=== PATIENT | male | born 1955 | race African-American/Black ===

== ENCOUNTER 2018-09-14 17:03 | Emergency (ER) | payer SELFPAY ==
--- NOTE | 2018-09-14 18:51 | RAD REPORT ---
EXAM DESCRIPTION: CT - Head Brain Wo Cont - 09/14/2018 6:39 pm CLINICAL HISTORY: Headache COMPARISON: None. TECHNIQUE: Computed axial tomography of the head was obtained. IV contrast was not requested. All CT scans are performed using dose optimization technique as appropriate and may include automated exposure control or mA/KV adjustment according to patient size. FINDINGS: An intracranial bleed is not seen . The ventricles are normal in caliber. No extra-axial fluid collection is noted. Fluid within the sinuses/ mastoids is not seen. IMPRESSION: No acute intracranial abnormality is seen. If patient's symptoms persist MRI of the bra in would be recommended.
[2018-09-14 19:09] LABS: Absolute Lymphocytes (CBC) 1.9 K/uL (0.7-4.9); Absolute Monocytes 0.5 K/uL (0.1-1.3); Absolute Neutrophil 4.3 K/uL (1.8-8.0); Eosinophils % 2.6 % (0-4.4); Hematocrit 38.2 % (39.6-49.0); MPV 9.7 fL (7.6-11.3); Monocytes % 6.7 % (3.3-12.3); RBC Red Blood Cell Count 5.33 M/uL (4.33-5.43)
[2018-09-14] MEDS ORDERED: METOCLOPRAMIDE 10 MG/2mL INJ ONE (19:21)
[2018-09-14] MEDS ORDERED: NA CHLORIDE 0.9% 250 ML ONE (19:22)
[2018-09-14] MEDS ORDERED: DIPHENHYDRAMINE 50 MG/ML VIAL ONE (19:22)
[2018-09-14 19:23] LABS: Bilirubin Total 0.6 mg/dL (0.2-1.0); Potassium 4.1 mmol/L (3.5-5.1); Protein, Total 7.4 g/dL (6.4-8.2)
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
== END 2018-09-14 20:17 | disposition home or self-care (01) ==
LOC: ER 17:03
DX: R51 Headache (principal); Z88.6 Allergy status to analgesic agent
CPT/HCPCS: 36415; 70450; 80053; 85025; 96365; 96375; 99284; J2765

== ENCOUNTER 2020-04-29 17:38 | Emergency (ER) | payer SELFPAY ==
[2020-04-29 19:48] LABS: Absolute Lymphocytes (CBC) 2.3 K/uL (0.7-4.9); Basophils % 0.8 % (0-1.3); Hematocrit 35.1 % (39.6-49.0); Lymphocytes % 30.6 % (15.3-44.8); MPV 9.7 fL (7.6-11.3); RBC Red Blood Cell Count 4.84 M/uL (4.33-5.43)
--- NOTE | 2020-04-29 19:51 | RAD REPORT ---
EXAM DESCRIPTION: CT - Head Brain Wo Cont - 04/29/2020 7:31 pm CLINICAL HISTORY: AMS Headache, drowsiness COMPARISON: Head Brain Wo Cont dated 09/14/2018 TECHNIQUE: All CT scans are performed using dose optimization technique as appropriate and may inclu de automated exposure control or mA/KV adjustment according to patient size. FINDINGS: No intracranial hemorrhage, hydrocephalus or extra-axial fluid collection.No areas of brai n edema or evidence of midline shift. The paranasal sinuses and mastoids are clear. The calvarium is intact. IMPRESSION: No acute intracranial abnormality.
--- NOTE | 2020-04-29 19:52 | RAD REPORT ---
EXAM DESCRIPTION: RAD - Chest Pa And Lat (2 Views) - 04/29/2020 7:39 pm CLINICAL HISTORY: AMS Chest pain. COMPARISON: No comparisons FINDINGS: The lungs are clear. The heart is normal in size. No displaced fractures. IMPRESSION: No acute or concerning finding suspected.
[2020-04-29 20:14] LABS: Bilirubin Direct 0.2 mg/dL (0-0.2); Potassium 3.8 mmol/L (3.5-5.1); Protein, Total 7.3 g/dL (6.4-8.2)
[2020-04-29] MEDS ORDERED: NA CHLORIDE 0.9% 1,000 ML ONE (21:03)
[2020-04-29 21:18] LABS: Urine Blood NEGATIVE (NEG); Urine Glucose NEGATIVE (NEG); Urine Protein NEGATIVE (NEG); Urine Specific Gravity >1.030 (1.005-1.030); Urine pH 5.5 (5.0-7.0)
[2020-04-29 21:23] LABS: Urine Bacteria <20 /HPF (NONE SEEN); Urine Culture Reflex Order NOT NEEDED; Urine Mucus 3+ /HPF (NONE SEEN); Urine RBC <5 /HPF (NONE SEEN)
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
[2020-04-29 21:36] LABS: Barbiturates NEGATIVE (NEGATIVE); Benzodiazepines NEGATIVE (NEGATIVE); Cocaine POSITIVE (NEGATIVE); METHAMPHETAM NEGATIVE (NEGATIVE); Methadone NEGATIVE (NEGATIVE); Opiates NEGATIVE (NEGATIVE); Phencyclidine NEGATIVE (NEGATIVE); THC Cannibis NEGATIVE (NEGATIVE)
[2020-04-30 05:36] VITALS: TEMP 97.9; O2SAT 100
[2020-04-30 05:39] VITALS: BP 140/98
== END 2020-04-29 22:13 | disposition home or self-care (01) ==
LOC: ER 17:38
DX: R41.3 Other amnesia (principal); F14.10 Cocaine abuse, uncomplicated; I10 Essential (primary) hypertension; Z88.6 Allergy status to analgesic agent
CPT/HCPCS: 36415; 70450; 71046; 80048; 80076; 80307; 81003; 81015; 83605; 84145; 85025; 93005; 96360; 99284; J7030

== ENCOUNTER 2021-07-10 14:21 | Emergency (ER) | payer OTHER, SELFPAY ==
--- OUTSIDE RECORDS SUMMARY | 2021-07-10 14:26 | XMS REPORT | Continuity of Care Document ---
:1955 Author Organization [facility] t Address [address] [place] [address] Care Team Providers Name Role Phone Pcp, Does Not Have A Primary Care Physician Robe LOVELACE S Attending Clinician Sae NIEVES Attending Clinician Unavailable Doctor Unassigned, Name Attending Clinician Unavailable SCOUT Attending Clinician Unavailable MD JAMIE Attending Clinician Unavailable JAMIE Admitting Clinician Unavailable MD JAMIE Admitting Clinician Unavailable Payers Payer Name Policy Type Policy Number Effective Date Expiration Date S ource Problems This patient has no known problems. Allergies, Adverse Reactions, Alerts Allergy Allergy Status Severity Reaction(s) Onset Inactive Treating Comm ents Source Name Type Date Date Clinician NO KNOWN Drug Active Univers ALLERGIE Class ity of S [facility] Social History Social Habit Start Date Stop Date Quantity Comments Source Exposure to Not sure [facility] SARS-CoV-2 (event) Medica l Branch Sex Assigned At [address] 1955 [facility] 00:00:00 00:00:[address] [facility] Branch Smoking Status Start Date Stop Date Source Unknown if ever smoked [facility] Medications Ordered Filled Start Stop Current Ordering Indication Dosage Frequency Signature Comments Components Source Medication Medication Date Date Medication? Clinician (SIG) Name Name hydrOXYzine Yes [id number] 25mg Take 1 Univers 25 mg 1-31 tablet by ity of tablet 00:00: mouth [place] 00 every 8 Medical (eight) Branch hours as needed for Anxiety (during daytime). Vital Signs Vital Name Observation Time Observation Value Comments Source Systolic blood 2021-07-06 18:45:00 117 mm[Hg] Univer sity of pressure [facility] Diastolic blood 2021-07-06 18:45:00 83 mm[Hg] Unive rsity of pressure [facility] Heart rate 2021-07-06 18:45:00 104 /min Universi ty of [facility] Body temperature 2021-07-06 18:45:00 37.72 [facility] Res[facility] rate 2021-07-06 18:45:00 18 /min [facility] Body height 2021-07-06 18:45:00 188 cm Universi ty of [facility] Body weight 2021-07-06 18:45:00 81.647 kg Universi ty of [facility] BMI 2021-07-06 18:45:00 23.11 kg/m2 Universi ty [facility] Oxygen saturation in 2021-07-06 18:45:00 97 /min [facility] Arterial blood by [facility] Pulse oximetry Branch Procedures Procedure Date / Time Performed Performing Clinician [facility] e CONSENT/REFUSAL FOR 2021-07-06 18:36:32 Doctor Unassigned, No [facility] DIAGNOSIS AND Name Medical [place] TREATMENT NOTICE OF PRIVACY 2021-07-06 18:36:18 Doctor Unassigned, No [facility] PRACTICES Name [facility] Encounters Start End Encounter Admission Attending Care Care Encounter Source Date/Time Date/Time Type Type Clinicians Facility Department ID 2021-07-06 2021-07-06 Emergency DEENA Nieves [id number] Univers 12:47:00 15:18:00 Lalita REYEZ [id number] i ty [facility] [id number] [facility] [id number] Medi geovanna 084 Branch 2021-07-06 2021-07-06 Emergency X DEENA NIEVES ERT [id number] Univers 12:47:00 15:18:00 LALITA ity of [facility] 2021-07-06 2021-07-06 Orders Doctor HEARD [id number] Univers 00:00:00 00:00:00 Only UnassignedVINCENZO [id number] ity of [facility] [id number] Matthew as [id number] [facility] 009 Branch 2020-08-24 2020-08-29 Inpatient SCOUT [facility] [id number] [place] 00:00:00 00:00:00 MARSHAL [address] Results Test Description Test Time Test Comments Results Result Comments Source SARS-CoV-2 (COVID-19) RNA [Presence] in Respiratory sp ecimen by 2020-08-24 20:36:17 ANDREY with probe detection Test Item Value Reference Range Interpretation Comme nts SARS-CoV-2 (COVID-19) RNA [Presence] in Respiratory Not detected No t-Detected specimen by ANDREY with probe detection (test code = 23798-8)
[2021-07-10 17:00] LABS: Absolute Lymphocytes (CBC) 1.2 K/uL (0.7-4.9); Hematocrit 42.1 % (39.6-49.0); Lymphocytes % 24.6 % (15.3-44.8); MPV 9.4 fL (7.6-11.3); RBC Red Blood Cell Count 5.81 M/uL (4.33-5.43)
[2021-07-10 17:10] LABS: Albumin 3.7 g/dL (3.4-5.0); Bilirubin Direct 0.2 mg/dL (0-0.2); Bilirubin Total 0.7 mg/dL (0.2-1.0); Potassium 3.5 mmol/L (3.5-5.1); Protein, Total 8.5 g/dL (6.4-8.2)
[2021-07-10] MEDS ORDERED: NA CHLORIDE 0.9% 1,000 ML ONE (17:13)
--- NOTE | 2021-07-10 18:01 | RAD REPORT ---
EXAM DESCRIPTION: CT - Head Brain Wo Cont - 07/10/2021 5:51 pm CLINICAL HISTORY: CONFUSED Headache, drowsiness COMPARISON: Head Brain Wo Cont dated 04/29/2020; Head Brain Wo Cont dated 09/14/2018 TECHNIQUE: All CT scans are performed using dose optimization technique as appropriate and may inclu de automated exposure control or mA/KV adjustment according to patient size. FINDINGS: No intracranial hemorrhage, hydrocephalus or extra-axial fluid collection.No areas of brai n edema or evidence of midline shift. The paranasal sinuses and mastoids are clear. The calvarium is intact. IMPRESSION: No acute intracranial abnormality.
[2021-07-10 18:39] LABS: Urine Blood Trace-intact (Negative); Urine Glucose Negative (Negative); Urine Protein 2+ (Negative); Urine Specific Gravity >=1.030 (1.005-1.030)
[2021-07-10] MEDS ORDERED: SMZ./TMP. 800/160 MG TABLET ONE (18:59)
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
--- NOTE | 2021-07-10 19:11 | EDPHYS ---
Physician Documentation [facility] Name: Jonathan Makr Age: 65 yrs Sex: Male : 1955 Arrival Date: 07/10/2021 Time: 14:25 Bed 15 Private MD: ED Physician Reyes Monte HPI: 07/10 19:13 This 65 yrs old Black Male presents to ER via Ambulatory with complaints of Decreased kdr Appetite. 19:13 The states that for the past 3 days the patient is has little to nothing to eat or kdr drink. She feels that he is losing weight. She describes what she believes to be progressive dementia. The patient appears in no acute distress but clearly is mildly confused. He follows directions and is otherwise able to interact appropriately but he is clearly mildly confused. The exam otherwise was unremarkable on did not require immediate intervention. Onset: The symptoms/episode began/occurred gradually, at an unknown time. Severity of symptoms: At their worst the symptoms were mild in the emergency department the symptoms are unchanged. The patient has not experienced similar symptoms in the past. The patient has not recently seen a physician. Historical: - Allergies: 14:49 Aspirin; jl7 - PMHx: 14:49 Diabetes - NIDDM; Hypertension; jl7 - Immunization history:: Adult Immunizations unknown. - Social history:: Smoking status: unknown. ROS: 19:13 Constitutional: Negative for fever, chills, and he may have had some weight loss, Eyes: kdr Negative for injury, pain, redness, and discharge, Neck: Negative for injury, pain, and swelling, Cardiovascular: Negative for chest pain, palpitations, and edema, Respiratory: Negative for shortness of breath, cough, wheezing, and pleuritic chest pain, Abdomen/GI: Negative for abdominal pain, nausea, vomiting, diarrhea, and constipation, Back: Negative for injury and pain, : Negative for injury, bleeding, discharge, and swelling, MS/Extremity: Negative for injury and deformity, Skin: Negative for injury, rash, and discoloration, Psych: Negative for depression, anxiety, suicide ideation, homicidal ideation, and hallucinations, Allergy/Immunology: Negative for hives, rash, and allergies, Endocrine: Negative for neck swelling, polydipsia, polyuria, polyphagia, and marked weight changes, Hematologic/Lymphatic: Negative for swollen nodes, abnormal bleeding, and unusual bruising. 19:13 Neuro: Positive for altered mental status, Mild confusion. Exam: 19:13 Constitutional: This is a well developed, well nourished patient who is awake, alert, kdr and in no acute distress. Patient's has spells where he talks in a word salad fashion about subjects which are not relevant to current circumstances Head/Face: Normocephalic, atraumatic. Eyes: Pupils equal round and reactive to light, extra-ocular motions intact. Lids and lashes normal. Conjunctiva and sclera are non-icteric and not injected. Cornea within normal limits. Periorbital areas with no swelling, redness, or edema. Neck: Trachea midline, no thyromegaly or masses palpated, and no cervical lymphadenopathy. Supple, full range of motion without nuchal rigidity, or vertebral point tenderness. No Meningismus. Chest/axilla: Normal chest wall appearance and motion. Nontender with no deformity. No lesions are appreciated. Cardiovascular: Regular rate and rhythm with a normal S1 and S2. No gallops, murmurs, or rubs. Normal PMI, no JVD. No pulse deficits. Respiratory: Lungs have equal breath sounds bilaterally, clear to auscultation and percussion. No rales, rhonchi or wheezes noted. No increased work of breathing, no retractions or nasal flaring. Abdomen/GI: Soft, non-tender, with normal bowel sounds. No distension or tympany. No guarding or rebound. No evidence of tenderness throughout. Patient does complain of a possible right inguinal hernia but does not appear to be in any significant pain as result. Indicate this is longstanding from when he had been doing some lifting Back: No spinal tenderness. No costovertebral tenderness. Full range of motion. Skin: Warm, dry with normal turgor. Normal color with no rashes, no lesions, and no evidence of cellulitis. MS/ Extremity: Pulses equal, no cyanosis. Neurovascular intact. Full, normal range of motion. Neuro: Awake and alert, GCS 15, oriented to person, place, time, and situation. Cranial nerves II-XII grossly intact. Motor strength 5/5 in all extremities. Sensory grossly intact. Cerebellar exam normal. Normal gait. Psych: Awake, alert, with orientation to person, place and time. Behavior, mood, and affect are within normal limits. Vital Signs: 14:47 BP 132 / 96; Pulse 79; Resp 17; Temp 98.4; Pulse Ox 100% ; jl7 16:48 BP 112 / 73; Pulse 70; Resp 18; Pulse Ox 98% on R/A; ic1 18:43 BP 122 / 84; Pulse 109; Resp 18; Pulse Ox 98% on R/A; ic1 MDM: 19:10 Patient medically screened. kdr 19:13 Data reviewed: vital signs, nurses notes, lab test result(s), radiologic studies. kdr Counseling: I had a detailed discussion with the patient and/or guardian regarding: the historical points, exam findings, and any diagnostic results supporting the discharge/admit diagnosis, lab results, radiology results, the need for outpatient follow up. 07/10 16:16 Order name: Basic Metabolic Panel; Complete Time: 17:27 kdr 07/10 16:16 Order name: CBC with Diff; Complete Time: 17:27 kdr 07/10 16:16 Order name: Hepatic Function; Complete Time: 17:27 kdr 07/10 16:16 Order name: Lipase; Complete Time: 17:27 kdr 07/10 18:39 Order name: Urine Dipstick-Ancillary; Complete Time: 18:44 EDMI 07/10 16:16 Order name: IV Saline Lock; Complete Time: 16:48 kdr 07/10 16:16 Order name: Labs collected and sent; Complete Time: 16:48 kdr 07/10 17:34 Order name: CT Head Brain wo Cont; Complete Time: 18:09 kdr 07/10 17:34 Order name: Urine Dipstick-Ancillary (obtain specimen); Complete Time: 18:39 kdr Administered Medications: 17:18 Drug: NS 0.9% 1000 ml Route: IV; Rate: 1 bolus; Site: right forearm; almaraz 18:59 Drug: Bactrim (trimethoprim-sulfamethoxazole) (160 mg-800 mg (DS) 1 tablet Route: PO; almaraz 18:59 Follow up: Response: No adverse reaction almaraz Disposition Summary: 07/10/21 19:10 Discharge Ordered Location: Home kdr Problem: an ongoing problem kdr Symptoms: are unchanged kdr Condition: Stable kdr Diagnosis - Confusional arousals kdr - Altered mental status, unspecified kdr - Acute cystitis kdr Followup: kdr - With: Private Physician - When: 2 - 3 days - Reason: If symptoms return, Further diagnostic work-up, Recheck today's complaints, Continuance of care, Re-evaluation by your physician Discharge Instructions: - Discharge Summary Sheet kdr - Confusion kdr - Interstitial Cystitis kdr Forms: - Medication Reconciliation Form kdr - Thank You Letter kdr - Antibiotic Education kdr Prescriptions: - Bactrim DS 800-160 mg Oral Tablet - take 1 tablet by ORAL route every 12 hours for 7 days; 14 tablet; Refills: 0, kdr Product Selection Permitted Signatures: Dispatcher [employer] EDReyes Gray MD MD kdr Leal, Jahala RN RN jl7 Camryn-Shellie Robison RN RN almaraz
[2021-07-10 19:46] VITALS: TEMP 98.4
[2021-07-10 19:47] VITALS: O2SAT 98
[2021-07-10 19:48] VITALS: BP 122/84
== END 2021-07-10 19:34 | disposition home or self-care (01) ==
LOC: ER 14:21
DX: R41.82 Altered mental status, unspecified (principal); G47.51 Confusional arousals; N30.00 Acute cystitis without hematuria; I10 Essential (primary) hypertension; Z88.6 Allergy status to analgesic agent
CPT/HCPCS: 85025; 80048; 36415; 80076; 81003; 83690; 70450; 99284; J7030

== ENCOUNTER 2021-12-14 12:09 | Emergency (ER) | payer OTHER ==
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
[2021-12-14 14:48] LABS: Urine Blood Negative (Negative); Urine Glucose Negative (Negative); Urine Protein Negative (Negative); Urine Specific Gravity >=1.030 (1.005-1.030); Urine pH 5.5 (5.0-7.0)
[2021-12-14 14:51] LABS: Absolute Lymphocytes (CBC) 1.4 K/uL (0.7-4.9); Hematocrit 43.8 % (39.6-49.0); Lymphocytes % 23.4 % (15.3-44.8); MCV 73.1 fL (80-100); MPV 9.8 fL (7.6-11.3)
[2021-12-14 15:06] LABS: Protime INR 1.04
[2021-12-14 15:16] LABS: Barbiturates NEGATIVE (NEGATIVE); Benzodiazepines NEGATIVE (NEGATIVE); Cocaine NEGATIVE (NEGATIVE); METHAMPHETAM NEGATIVE (NEGATIVE); Methadone NEGATIVE (NEGATIVE); Opiates NEGATIVE (NEGATIVE); Phencyclidine NEGATIVE (NEGATIVE); THC Cannibis NEGATIVE (NEGATIVE)
[2021-12-14 15:20] LABS: Albumin 4.3 g/dL (3.4-5.0); Bilirubin Direct 0.2 mg/dL (0-0.2); Potassium 3.7 mmol/L (3.5-5.1); Protein, Total 8.1 g/dL (6.4-8.2); Troponin High Sensitivity 8.3 pg/mL (<58.9)
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
[2021-12-14 16:30] VITALS: TEMP 96.9
[2021-12-14 16:33] VITALS: BP 123/83; O2SAT 97
--- NOTE | 2021-12-15 08:22 | EKG ---
Test Date: 2021-12-14 Test Time: 15:20:54 Irrigator Overhead: KHALIDA MEASUREMENT RESULTS: Intervals: Rate: 50 ME: 150 QRSD: 88 QT: 478 QTc: 435 [place]: P: 55 ME: 150 QRS: 51 T: 46 INTERPRETIVE STATEMENTS: Sinus bradycardia with occasional premature ventricular complexes Otherwise normal ECG Compared to ECG 04/29/2020 19:17:21 Ventricular premature complex(es) now present Sinus rhythm no longer present Electronically Signed On 12-15-21 08:18:28 CDT by Sam Toscano
== END 2021-12-14 16:18 | disposition home or self-care (01) ==
LOC: ER 12:09
DX: F41.9 Anxiety disorder, unspecified (principal); E11.9 Type 2 diabetes mellitus without complications; I10 Essential (primary) hypertension; Z88.6 Allergy status to analgesic agent
CPT/HCPCS: 36415; 70450; 72125; 80048; 80076; 80307; 80320; 81003; 84484; 85025; 85610; 85730; 93005; 99284

== ENCOUNTER 2023-08-23 09:32 | Inpatient (IN) | payer OTHER ==
[2023-08-23 10:52] LABS: SARS-CoV-2 Antigen CONTROL BLUE LINE VIS/BG OK; SARS-CoV-2 Antigen Rapid Res Negative (Negative)
[2023-08-23 10:52] LABS: Albumin 3.9 g/dL (3.4-5.0); Albumin/Globulin Ratio 1.1 (1.1-1.8); Anion Gap 9.2 mEq/L (5.0-15.0); Bilirubin Total 1.5 mg/dL (0.2-1.0); Globulin 3.4 g/dL (2.3-3.5); Potassium 4.2 mEq/L (3.5-5.1); Protein, Total 7.3 g/dL (6.4-8.2)
[2023-08-23 10:53] LABS: Absolute Lymphocytes (CBC) 1.1 K/uL (0.7-4.9); Absolute Monocytes 0.5 K/uL (0.1-1.3); Basophils % 0.3 % (0-1.3); Eosinophils % 0.5 % (0-4.4); Hematocrit 36.6 % (39.6-49.0); Hemoglobin 11.6 g/dL (13.6-17.9); Lymphocytes % 12.4 % (15.3-44.8); MCHC 31.8 g/dL (32.0-36.0); MCV 72.4 fL (80-100); MPV 9.8 fL (7.6-11.3); Monocytes % 6.3 % (3.3-12.3); Neutrophils % 80.5 % (41.7-73.7); Platelets 204 thou/uL (152-406); RBC Red Blood Cell Count 5.05 M/uL (4.33-5.43); Red Cell Distribution Width 16.1 % (12.1-15.2)
--- NOTE | 2023-08-23 11:08 | RAD REPORT ---
EXAM DESCRIPTION: Elenat Single View08/23/2023 10:09 am CLINICAL HISTORY: AMS, cough COMPARISON: Chest Pa And Lat (2 Views) dated 04/29/2020; Head Brain Wo Cont dated 08/23/2023 TECHNIQUE: Portable AP view of the chest. FINDINGS: Elevation of the left hemidiaphragm. The lungs are clear. No pneumothorax or effusion. Th e cardiomediastinal contours are unremarkable. Marked gaseous distension throughout the colon. IMPRESSION: No acute cardiopulmonary process. Marked gaseous distention throughout the colon.
[2023-08-23 11:12] LABS: Specific Gravity 1.024 (1.005-1.030); Sqamous Epithelial None Seen /HPF (None Seen); Urine Bacteria None Seen /HPF (<20); Urine Bilirubin NEGATIVE (Negative); Urine Blood 2+ (Negative); Urine Clarity Clear (Clear); Urine Color Yellow (Yellow); Urine Culture Reflex Order NOT NEEDED; Urine Glucose NEGATIVE (Negative); Urine Ketones 1+ (Negative); Urine Microscopic Reflex YN ORDER UMIC; Urine Mucus Slight /HPF (None Seen); Urine Nitrite NEGATIVE (Negative); Urine Protein 1+ (Negative); Urine RBC <5 /HPF (None Seen); Urine Urobilinogen Normal (Normal); Urine WBC <5 /HPF (<5)
--- NOTE | 2023-08-23 11:16 | RAD REPORT ---
EXAM DESCRIPTION: CT - Head Brain Wo Cont - 08/23/2023 11:06 am CLINICAL HISTORY: AMS COMPARISON: Head Brain Wo Cont dated 07/10/2021; Head Brain Wo Cont dated 04/29/2020 TECHNIQUE: Noncontrast head CT images were obtained without IV contrast. Multiplanar reformats were generated and reviewed. All CT scans are performed using dose optimization technique as appropriate and may include automated exposure control or mA/KV adjustment according to patient size. FINDINGS: No intracranial hemorrhage, mass, or edema. Midline structures are unremarkable. Mild diffuse parenchymal volume loss. Mild patchy periventricular and deep white matter hypodensities, nonspecific, but suggestive chronic small vessel ischemic changes. Woodson-white matter differentiation is preserved, without evidence of acute infarct. No abnormal extra- axial fluid collections. Mastoid air cells and visualized portions of the paranasal sinuses are clear. No acute bony findings. IMPRESSION: No evidence of an acute intracranial process. Chronic findings as above.
[2023-08-23] MEDS ORDERED: NA CHLORIDE 0.9% 1,000 ML ONE ×3 (11:28→16:17)
--- NOTE | 2023-08-23 12:38 | RAD REPORT ---
EXAM DESCRIPTION: CT - Chest Abdomen Pelvis W Cont - 08/23/2023 11:09 am CLINICAL HISTORY: AMS, cough, decreased appetite COMPARISON: Abdomen Pelvis W Contrast dated 10/24/2019No comparisons TECHNIQUE: Thin axial CT images of the chest, abdomen, and pelvis, performed following intravenous a dministration of 100mL Isovue-300. Multiplanar reformats were generated and reviewed. All CT scans are performed using dose optimization technique as appropriate and may include automated exposure control or mA/KV adjustment according to patient size. FINDINGS: The lungs are clear.Elevation of the left hemidiaphragm.No pleural or pericardial effusion .No intrathoracic adenopathy. The liver, spleen, pancreas, adrenal glands and kidneys are within normal limits. Marked distention with stool and gas throughout the colon, with large accumulation of stool within th e rectum. No bowel obstruction, free air, free fluid or abscess. Normal appendix. No pathologic lymp hadenopathy in the abdomen or pelvis. Urinary bladder is decompressed limiting evaluation. No worrisome osseous finding. IMPRESSION: Marked distention of the colon with stool and gas. Marked accumulation of stool within t he rectum. No other acute intra-abdominal or intrathoracic process.
[2023-08-23] MEDS ORDERED: FLEET ENEMA ADULT PR ONE ×2 (13:57→14:21)
[2023-08-23] MEDS ORDERED: GLYCERIN PEDI RECTAL SUPP PR ONE (13:57)
--- NOTE | 2023-08-23 14:19 | P.HP ---
Certification for Inpatient Patient admitted to: Inpatient With expected LOS: <2 Midnights <Mary East - Last Filed: 08/23/23 15:28> Patient History Date of Service: 08/23/23 Reason for admission: Dehydration History of Present Illness: 67-year-old -Swazi male with past medical history of dementia, anxiety, diabetes, lsh-suxjhjk-jzkewcnwh, hypertension, presents to the emergency room via EMS for AMS with dehydration, poor p.o. intake. HPI limited due to patient's nonverbal, ER evaluation EKG sinus rhythm rate [address] changes. Vital signs signs blood pressure 106/84 heart rate 78, respirations 16, 100% on room air. CT of the brain no acute intracranial hemorrhage or mass or edema., Diffuse para in kilo volume loss, hypodensities nonspecific, suggestive of chronic small vessel ischemic changes, CT of the chest and abdomen, gaseous distention, elevation of left hemidiaphragm, lungs are clear, laboratory evaluation microcytic anemia 11.6 36.6, early left shift 80.5 acute on chronic kidney injury BUN 46 creatinine 1.28, blood glucose 128, COVID- negative, plan to admit for altered mental status, dehydration, fecal impaction, - Past Medical/Surgical History -: Dementia -: Nonverbal -: CAD Past Surgical History: Unable to obtain - Social History Smoking Status: Unknown if ever smoked Place of Residence: [place] <Mary East - Last Filed: 08/23/23 15:28> Date of Service: 08/23/23 <Ishan Quintanilla - Last Filed: 08/23/23 17:30> Review of Systems Per HPI General: Fever <Mary East - Last Filed: 08/23/23 15:28> Physical Examination - Physical Exam General: Alert, Confused, Other (Nonverbal) HEENT: Atraumatic, Normocephalic Neck: Supple, JVD not distended Respiratory: Clear to auscultation bilaterally, Normal air movement Cardiovascular: No edema, Normal pulses Capillary refill: <2 Seconds Gastrointestinal: Other (Fecal impaction, digital removal) Musculoskeletal: Other (Generalized weakness unknown baseline) Integumentary: Other (Dry skin) Neurological: Other (, Total care, alert and oriented x 1) - Studies Laboratory Data (last 24 hrs) 08/23/23 08/23/23 10:15 10:15 WBC 8.70 Hgb 11.6 L Hct 36.6 L Plt Count 204 Sodium 140 Potassium 4.2 BUN 46 H Creatinine 1.28 Glucose 128 H Total Bilirubin 1.5 H AST 58 H ALT 16 Alkaline Phosphatase 73 Microbiology Data (last 24 hrs): 08/23/23 10:32 Nasopharnyx Influenza Type A Antigen Screen - Final 08/23/23 10:32 Nasopharnyx Influenza Type B Antigen Screen - Final <Mary East - Last Filed: 08/23/23 15:28> - Studies Laboratory Data (last 24 hrs) 08/23/23 08/23/23 10:15 10:15 WBC 8.70 Hgb 11.6 L Hct 36.6 L Plt Count 204 Sodium 140 Potassium 4.2 BUN 46 H Creatinine 1.28 Glucose 128 H Total Bilirubin 1.5 H AST 58 H ALT 16 Alkaline Phosphatase 73 Microbiology Data (last 24 hrs): 08/23/23 10:32 Nasopharnyx Influenza Type A Antigen Screen - Final 08/23/23 10:32 Nasopharnyx Influenza Type B Antigen Screen - Final <Ishan Quintanilla - Last Filed: 08/23/23 17:30> Assessment and Plan - Plan Assessment plan Nonverbal unknown baseline History of dementia Speech eval in the morning PT eval CT of the brain no acute intracranial hemorrhage or mass or edema., Diffuse para in kilo volume loss, hypodensities nonspecific, suggestive of chronic small vessel ischemic changes laboratory evaluationearly left shift 80.5 acute on chronic kidney injury BUN 46 creatinine 1.28, blood glucose 128, COVID-negative, Constipation Stool softeners, enema, Digital fecal impaction removed in ER Dehydration Poor p.o. intake IV fluids, trend electrolytes replace as needed CT of the chest and abdomen, gaseous distention, elevation of left hemidiaphragm, lungs are clear Acute on chronic kidney injury unknown baseline Trend BUN and creatinine Ylg-xqtbgor-kynhodlmi diabetes mellitus Accu-sliding scale insulin Essential hypertension Resume appropriate home meds EKG sinus rhythm rate [address] changes. Vital signs signs blood pressure 106/84 heart rate 78, respirations 16, 100% on room air. microcytic anemia HH11.6 36.6, Full code Diet clear liquids SCDs DVT Disposition Return to senior living, fall precaution unknown baseline Discharge Plan: [facility] - Advance Directives Does patient have a Living Will: No Does patient have a Durable POA for Healthcare: No - Code Status/Comfort Care Code Status: Full Code Critical Care: No Time Spent Managing Pts Care (In Minutes): 55 <Mary East - Last Filed: 08/23/23 15:28> - Plan Pt seen and examined. I agree with the note by the ELEMENTARY VOCAL MUSIC TEACHER. Pt is a 67yo male with past medical history of dementia, anxiety, diabetes, lar-bgxfhwo-bpkvpedjr, and hypertension who presented with AMS. Pt is non-verbal. Lab studies show evidence of dehydration, hgb 11.6, wbc 8.7, K 4.2, Cr 1.28, T.bili 1.5, and COVID negative. CT head is unremarkable. CT of the chest and abdomen, gaseous distention, elevation of left hemidiaphragm, lungs are clear. At bedside, pt was somnolent. A/P: Constipation: The nurse disimpacted stool in the ER. Will continue laxatives Hx of dementia: Continue supportive care Volume depletion/ SARAI: Will continue IVF. Cr is 1.28. Avoid nephrotoxins Hypotension: Continue IVF. Low threshold to start pressor. Continue home meds for other chronic medical problems. <Ishan Quintanilla - Last Filed: 08/23/23 17:30>
[2023-08-23] MEDS ORDERED: FLEET ENEMA ADULT PR PRN (14:23)
--- NOTE | 2023-08-23 15:54 | ER ---
Nurse's Notes [facility] Name: Jonathan Mark Age: 67 yrs Sex: Male : 1955 Arrival Date: 08/23/2023 Time: 09:32 Bed 16 Private MD: Diagnosis: Fecal impaction;Dehydration;Altered mental status, unspecified Presentation: 08/22 09:40 Initial Sepsis Screen: Does the patient meet any 2 criteria? Altered Mental Status. No. nj1 Patient's initial sepsis screen is negative. Does the patient have a suspected source of infection? No. Patient's initial sepsis screen is negative. Risk Assessment: Do you want to hurt yourself or someone else? Unable to obtain. Onset of symptoms was August 2023. 09:40 Acuity: ROGELIO 3 nj 09:40 Coronavirus screen: At this time, the client does not indicate any symptoms associated kc6 with coronavirus-19. Ebola Screen: No symptoms or risks identified at this time. 09:42 Chief complaint: EMS states: From [facility], has hx of dementia/alzheimers. [facility] states he has not been eating, drinking or taking medicines for the last couple of days. They also stated his mental status has changed but unable to specify baseline. Pt non verbal at this time. VS per EMS 123/81, 100-110, 98.5 F axillary. Care prior to arrival: Glucose check: 127. 09:42 Method Of Arrival: EMS: [facility] Historical: - Allergies: 10:36 Aspirin; kc6 - PMHx: 10:36 Diabetes - NIDDM; Hypertension; Alzheimer's disease; Dementia; Depressive disorder; kc6 Anemia; Diabetes mellitus; Anxiety; hyperlipidemia; insomnia; - Immunization history:: Adult Immunizations unknown. - Social history:: Smoking status: unknown. - Family history:: not pertinent. - Hospitalizations: : No recent hospitalization is reported. Screenin:37 [facility] ED Fall Risk Assessment (Adult) History of falling in the last 3 months, kc6 including since admission No falls in past 3 months (0 pts) Confusion or Disorientation Yes (5 pts) Intoxicated or Sedated No (0 pts) Impaired Gait Yes (1 pt) Mobility Assist Device Used No (0 pt) Altered Elimination Yes (1 pt) Score/Fall Risk Level 3 or more points = High Risk. Abuse screen: Denies threats or abuse. Denies injuries from another. Nutritional screening: No deficits noted. Tuberculosis screening: No symptoms or risk factors identified. Assessment: 10:56 General: Appears in no apparent distress. comfortable, slender, well groomed, well kc6 developed, Behavior is calm, cooperative, appropriate for age. Pain: Unable to use pain scale. Patient is disoriented. Does not appear to understand pain scale. Neuro: Level of Consciousness is confused, Oriented to person, Appropriate for age. Cardiovascular: Capillary refill < 3 seconds. Respiratory: Airway is patent Trachea midline Respiratory effort is even, unlabored, Respiratory pattern is regular, symmetrical. GI: Parent/caregiver reports the patient having anorexia. : No signs and/or symptoms were reported regarding the genitourinary system. Urine is clear. EENT: No signs and/or symptoms were reported regarding the EENT system. Derm: No signs and/or symptoms reported regarding the dermatologic system. Skin is intact, is healthy with good turgor, Skin is pink, warm \T\ dry. Musculoskeletal: No signs and/or symptoms reported regarding the musculoskeletal system. Circulation, motion, and sensation intact. Capillary refill < 3 seconds, Range of motion: intact in all extremities. 11:40 Reassessment: Patient appears in no apparent distress at this time. No changes from kc6 previously documented assessment. Patient and/or family updated on plan of care and expected duration. Pain level reassessed. 12:40 Reassessment: Patient appears in no apparent distress at this time. No changes from kc6 previously documented assessment. Patient and/or family updated on plan of care and expected duration. Pain level reassessed. 13:36 Reassessment: Patient appears in no apparent distress at this time. No changes from kc6 previously documented assessment. Patient and/or family updated on plan of care and expected duration. Pain level reassessed. 14:36 Reassessment: Patient appears in no apparent distress at this time. No changes from kc6 previously documented assessment. Patient and/or family updated on plan of care and expected duration. Pain level reassessed. Vital Signs: 09:40 BP 115 / 74; Pulse 95; Resp 18; Temp 98.4(A); Pulse Ox 100% on R/A; nj1 10:55 BP 125 / 95; Pulse 97; Resp 16 S; Pulse Ox 100% on R/A; kc6 11:11 BP 83 / 61; kc6 11:13 BP 69 / 51; kc6 11:15 BP 76 / 54; kc6 11:18 BP 75 / 61; kc6 11:21 BP 77 / 58; kc6 11:23 BP 78 / 61; kc6 11:30 BP 84 / 69; Pulse 72; Resp 14 S; Pulse Ox 100% on R/A; kc6 11:35 BP 85 / 61; Pulse 80; Resp 16 S; Pulse Ox 100% on R/A; kc6 11:53 BP 106 / 76; Pulse 78; Resp 16 S; Pulse Ox 100% on R/A; kc6 13:36 BP 106 / 84; Pulse 78; Resp 16 S; Pulse Ox 100% on R/A; kc6 ED Course: 09:38 Patient arrived in ED. rn 09:38 Jacky Rossi MD is Attending Physician. rn 09:53 Triage completed. nj1 10:09 CT Head Brain wo Cont In Process Unspecified. EDMS 10:11 Chest Single View XRAY In Process Unspecified. EDMS 10:22 Rama Sellers RN is Primary Nurse. kc6 10:22 Maintain EMS IV. Dressing intact. Good blood return noted. Site clean \T\ dry. Gauge \T\ chetna 6 site: 22G RUFA. 10:36 Arm band placed on. kc6 10:37 Inserted saline lock: 22 gauge in right hand, using aseptic technique. Blood collected. kc6 Patient maintains SpO2 saturation greater than 95% on room air. 10:38 Patient has correct armband on for positive identification. Placed in gown. Bed in low kc6 position. Call light in reach. Side rails up X2. Adult w/ patient. Client placed on continuous cardiac and pulse oximetry monitoring. NIBP monitoring applied. monitor technician on. 10:55 Straight cath inserted, using sterile technique, 16 Fr. Specimen obtained. Returned kc6 clear yellow urine. Patient tolerated well. 10:55 Door closed. Noise minimized. Lights dimmed. Warm blanket given. Cleaned of kc6 incontinence. Linen changed. 11:11 CT Chest, Abdomen, Pelvis - W/Contrast In Process Unspecified. EDMS 13:50 Abhishek Abreu is Hospitalizing Provider. rn 14:49 manual disimpaction. kc6 15:42 Patient admitted, IV remains in place. kc6 Administered Medications: 11:39 Drug: NS 0.9% IV 1000 ml IV at 1000 ml once Route: IV; Rate: 1000 ml; Site: right upper kc6 arm; 13:36 Follow up: Response: No adverse reaction; IV Status: Completed infusion; IV Intake: kc6 1000ml 14:28 Drug: Fleet Enema MI 133 ml MI once; may repeat once {Note: x2.} Route: MI; kc6 15:43 Follow up: Response: No adverse reaction kc6 14:49 Drug: Glycerin (Adult) MI Suppository 1 supp MI once Route: MI; kc6 15:43 Follow up: Response: No adverse reaction kc6 16:14 Drug: NS 0.9% IV 1000 ml IV at 1000 ml once Route: IV; Rate: 1000 ml; Site: right upper kc6 arm; Medication: 15:42 VIS not applicable for this client. kc6 Intake: 13:36 IV: 1000ml; Total: 1000ml. kc6 Outcome: 13:51 Decision to Hospitalize by Provider. rn 15:41 Admitted to ER Hold. Please see [facility] for further documentation. kc6 15:41 Condition: good 15:41 Instructed on the need for admit, 18:35 Patient left the ED. kc6 Signatures: Dispatcher [employer] EDMS Jacky Rossi MD MD rn Campbell, Kaitlyn, RN RN kc6 Jaco, Norma, RN RN nj1 Corrections: (The following items were deleted from the chart) 11:42 11:30 BP 84 / 69; kc6 kc6 11:53 11:35 BP 106 / 76; Pulse 78bpm; Resp 16bpm; Spontaneous; Pulse Ox 100% RA; kc6 kc6
--- NOTE | 2023-08-23 15:54 | EDPHYS ---
Physician Documentation [facility] Name: Jonathan Mark Age: 67 yrs Sex: Male : 1955 Arrival Date: 08/23/2023 Time: 09:32 Bed 16 Private MD: ED Physician Jacky Rossi HPI: 08/22 09:56 This 67 yrs old Black Male presents to ER via EMS with complaints of AMS. rn 09:56 The patient presents with decreased mental status, decreased responsiveness. Onset: The rn symptoms/episode began/occurred 2 day(s) ago. Possible causes: unknown. Current symptoms: In the emergency department the patient's symptoms are unchanged from the initial presentation. It is unknown whether or not the patient has had similar symptoms in the past. Sent by EMS from senior living for altered mental status. Noticed altered mental status and change approximately 2 days ago and worsening today. Per senior living staff patient not as lively and not eating or drinking for the last 2 days. No known trauma. EMS reports normal vital signs and afebrile.. Historical: - Allergies: 10:36 Aspirin; kc6 - PMHx: 10:36 Diabetes - NIDDM; Hypertension; Alzheimer's disease; Dementia; Depressive disorder; kc6 Anemia; Diabetes mellitus; Anxiety; hyperlipidemia; insomnia; - Immunization history:: Adult Immunizations unknown. - Social history:: Smoking status: unknown. - Family history:: not pertinent. - Hospitalizations: : No recent hospitalization is reported. ROS: 09:56 Unable to obtain ROS due to altered mental status, baseline dementia, rn Exam: 09:56 Constitutional: This is a well developed, well nourished patient who is awake, alert, rn and in no acute distress. Head/Face: Normocephalic, atraumatic. ENT: Dry mucous membranes, no stridor Cardiovascular: Regular rate and rhythm. No pulse deficits. Respiratory: Coarse bilateral breath sounds, no retractions Abdomen/GI: Soft, nontender, nondistended MS/ Extremity: Pulses equal, no cyanosis. Neuro: Somnolent but awakens to painful stimuli. Not answering questions, eyes open. 11:38 ECG was reviewed by the Attending Physician. rn Vital Signs: 09:40 BP 115 / 74; Pulse 95; Resp 18; Temp 98.4(A); Pulse Ox 100% on R/A; nj1 10:55 BP 125 / 95; Pulse 97; Resp 16 S; Pulse Ox 100% on R/A; kc6 11:11 BP 83 / 61; kc6 11:13 BP 69 / 51; kc6 11:15 BP 76 / 54; kc6 11:18 BP 75 / 61; kc6 11:21 BP 77 / 58; kc6 11:23 BP 78 / 61; kc6 11:30 BP 84 / 69; Pulse 72; Resp 14 S; Pulse Ox 100% on R/A; kc6 11:35 BP 85 / 61; Pulse 80; Resp 16 S; Pulse Ox 100% on R/A; kc6 11:53 BP 106 / 76; Pulse 78; Resp 16 S; Pulse Ox 100% on R/A; kc6 13:36 BP 106 / 84; Pulse 78; Resp 16 S; Pulse Ox 100% on R/A; kc6 MDM: 09:38 Patient medically screened. rn 13:49 Differential Diagnosis: electrolyte abnormality, intracranial bleed, pneumonia, UTI, rn volume depletion, Dehydration, fecal impaction, constipation, acute abdomen. Data reviewed: vital signs, nurses notes, lab test result(s), radiologic studies, CT scan, plain films, and as a result, I will admit patient. Consideration of Admission/Observation Patient was admitted/placed on observation. Escalation of care including admission/observation considered. Care significantly affected by the following chronic conditions: Diabetes, Dementia. Counseling: I had a detailed discussion with the patient and/or guardian regarding the historical points, exam findings, and any diagnostic results supporting the discharge/admit diagnosis, lab results, radiology results, the need for further work-up and treatment in the hospital. 16:09 ED course: Patient with good response to enemas and glycerin suppository as well as rn manual disimpaction.. 08/22 09:39 Order name: Blood Culture Adult (2) rn 08/22 09:39 Order name: CBC with Diff; Complete Time: 11:27 rn 08/22 09:39 Order name: CMP; Complete Time: 11:27 rn 08/22 09:39 Order name: Lactate w/ 2H reflex if indic.; Complete Time: 11:27 rn 08/22 09:39 Order name: Protime (+inr) rn 08/22 09:39 Order name: Ptt, Activated rn 08/22 09:39 Order name: Urinalysis w/ reflexes; Complete Time: 11:27 rn 08/22 09:39 Order name: SARS RAPID; Complete Time: 11:27 rn 08/22 09:39 Order name: Flu; Complete Time: 11:27 rn 08/22 09:39 Order name: BNP; Complete Time: 11:27 rn 08/22 09:39 Order name: CT Head Brain wo Cont; Complete Time: 11:27 rn 08/22 09:39 Order name: CT Chest, Abdomen, Pelvis - W/Contrast rn 08/22 09:39 Order name: Chest Single View XRAY; Complete Time: 11:27 rn 08/22 15:59 Order name: Abdomen 1 View (KUB) EDNV 08/22 15:59 Order name: Abdomen 1 View (KUB) EDNV 08/22 09:39 Order name: EKG; Complete Time: 09:40 rn 08/22 09:39 Order name: Accucheck; Complete Time: 10:22 rn 08/22 09:39 Order name: Cardiac monitoring; Complete Time: 09:58 rn 08/22 09:39 Order name: Cath; Complete Time: 10:55 rn 08/22 09:39 Order name: EKG - Nurse/Tech; Complete Time: 10:40 rn 08/22 09:39 Order name: IV Saline Lock - Large Bore; Complete Time: 10:22 rn 08/22 09:39 Order name: Labs collected and sent; Complete Time: 10:22 rn 08/22 09:39 Order name: O2 Per Protocol; Complete Time: 09:58 rn 08/22 09:39 Order name: O2 Sat Monitoring; Complete Time: 09:58 rn 08/22 09:39 Order name: Vital Signs; Complete Time: 10:21 rn EC:38 Rate is 97 beats/min. Rhythm is regular. QRS [place] is Normal. MI interval is normal. QRS rn interval is normal. QT interval is normal. No Q waves. T waves are Normal. No ST changes noted. Clinical impression: Normal ECG. Interpreted by me. Reviewed by me. Administered Medications: 11:39 Drug: NS 0.9% IV 1000 ml IV at 1000 ml once Route: IV; Rate: 1000 ml; Site: right upper kc6 arm; 13:36 Follow up: Response: No adverse reaction; IV Status: Completed infusion; IV Intake: kc6 1000ml 14:28 Drug: Fleet Enema MI 133 ml MI once; may repeat once {Note: x2.} Route: MI; kc6 15:43 Follow up: Response: No adverse reaction kc6 14:49 Drug: Glycerin (Adult) MI Suppository 1 supp MI once Route: MI; kc6 15:43 Follow up: Response: No adverse reaction kc6 16:14 Drug: NS 0.9% IV 1000 ml IV at 1000 ml once Route: IV; Rate: 1000 ml; Site: right upper kc6 arm; Disposition Summary: 08/23/23 13:51 Hospitalization Ordered Notes: Hospitalization Status: Inpatient Admission rn Provider: Abhishek Abreu rn Condition: Stable rn Problem: new rn Symptoms: are unchanged rn Bed/Room Type: Standard rn Location: Telemetry/MedSurg (Inpatient)(08/23/23 17:24) bd Room Assignment: [facility](08/23/23 17:24) bd Diagnosis - Fecal impaction rn - Dehydration rn - Altered mental status, unspecified rn Forms: - Medication Reconciliation Form rn - SBAR form rn - Leadership Thank You Letter rn Signatures: Dispatcher [employer] EDMS Julia Capone bd Jacky Rossi MD MD rn Campbell, Kaitlyn, RN RN kc6 Stacy Agarwal RN RN kb3 Corrections: (The following items were deleted from the chart) 15:17 13:51 Telemetry/MedSurg (Inpatient) rn kb3 15:17 13:51 rn kb3 17:24 15:17 [facility] ER HOLD kb3 bd 17:24 15:17 ERHOLD- kb3 bd
[2023-08-23 16:27] LABS: PT Prothrombin Time 12.5 SECONDS (9.5-12.5); Protime INR 1.14
[2023-08-23] MEDS ORDERED: ACETAMINOPHEN 500 MG TAB PO PRN (20:10)
[2023-08-23] MEDS ORDERED: ONDANSETRON 4 MG/2 ML VIAL IV PRN (20:10)
[2023-08-23 20:23] VITALS: O2SAT 100
[2023-08-23] MEDS: NA CHLORIDE 0.9% 1,000 ML IV SCH (20:47)
[2023-08-23] MEDS: MAGNESIUM HYDROXIDE 8% 30 ML PO SCH (20:47)
[2023-08-23 23:37] VITALS: BMI 25.9
[2023-08-24 06:59] LABS: Absolute Eosinophils 0.1 K/uL (0-0.5); Absolute Lymphocytes (CBC) 0.9 K/uL (0.7-4.9); Absolute Monocytes 0.4 K/uL (0.1-1.3); Absolute Neutrophil 5.6 K/uL (1.8-8.0); Basophils % 0.5 % (0-1.3); Eosinophils % 0.9 % (0-4.4); Hematocrit 31.9 % (39.6-49.0); Hemoglobin 10.4 g/dL (13.6-17.9); Lymphocytes % 13.1 % (15.3-44.8); MCH 23.4 pg (27.0-35.0); MCHC 32.6 g/dL (32.0-36.0); MPV 10.1 fL (7.6-11.3); Monocytes % 6.3 % (3.3-12.3); Neutrophils % 79.2 % (41.7-73.7); Nucleated Red Blood Cells % 0.1 % (0-0); Platelets 147 thou/uL (152-406); RBC Red Blood Cell Count 4.43 M/uL (4.33-5.43); Red Cell Distribution Width 16.4 % (12.1-15.2)
[2023-08-24 07:04] LABS: Anion Gap 9.9 mEq/L (5.0-15.0); Magnesium 1.9 mg/dL (1.6-2.4); Potassium 3.9 mEq/L (3.5-5.1)
--- NOTE | 2023-08-24 08:07 | P.PN ---
Subjective Date of Service: 08/24/23 Chief Complaint: Dehydration Nonverbal, eyes open to speech, poor p.o. intake today per nurse - Physical Exam General: Alert, Confused, Other (Nonverbal) HEENT: Atraumatic, Normocephalic Neck: Supple, JVD not distended Respiratory: Clear to auscultation bilaterally, Normal air movement Cardiovascular: No edema, Normal pulses Capillary refill: <2 Seconds Gastrointestinal: Other (Fecal impaction, digital removal) Musculoskeletal: Other (Generalized weakness unknown baseline) Integumentary: Other (Dry skin) Neurological: Other (, Total care, alert and oriented x 1) <Mary East - Last Filed: 08/24/23 14:00> Date of Service: 08/25/23 <Ishan Quintanilla - Last Filed: 08/25/23 22:27> Review of Systems Per HPI <Mary East - Last Filed: 08/24/23 14:00> Physical Examination - Vital Signs Temperature: 97.3 F Blood Pressure: 111/65 Pulse: 82 Respirations: 18 Pulse Ox (%): 96 - Studies Laboratory Data (last 24 hrs) 08/23/23 08/23/23 10:15 10:15 WBC 8.70 Hgb 11.6 L Hct 36.6 L Plt Count 204 Sodium 140 Potassium 4.2 BUN 46 H Creatinine 1.28 Glucose 128 H Total Bilirubin 1.5 H AST 58 H ALT 16 Alkaline Phosphatase 73 Microbiology Data (last 24 hrs): 08/23/23 10:32 Nasopharnyx Influenza Type A Antigen Screen - Final 08/23/23 10:32 Nasopharnyx Influenza Type B Antigen Screen - Final <Mary East - Last Filed: 08/24/23 14:00> Assessment And Plan - Plan Assessment plan Nonverbal unknown baseline History of dementia Speech eval in the morning PT eval CT of the brain no acute intracranial hemorrhage or mass or edema., Diffuse para in kilo volume loss, hypodensities nonspecific, suggestive of chronic small vessel ischemic changes laboratory evaluationearly left shift 80.5 acute on chronic kidney injury BUN 46 creatinine 1.28, blood glucose 128, COVID-negative, Constipation improving Stool softeners, enema, x 2 BM overnight Digital fecal impaction removed in ER Dehydration Poor p.o. intake IV fluids, trend electrolytes replace as needed CT of the chest and abdomen, gaseous distention, elevation of left hemidiaphragm, lungs are clear Acute on chronic kidney injury unknown baseline Trend BUN and creatinine Elh-cegbziz-lleevnivt diabetes mellitus Accu-sliding scale insulin Essential hypertension Resume appropriate home meds EKG sinus rhythm rate [address] changes. Vital signs signs blood pressure 106/84 heart rate 78, respirations 16, 100% on room air. microcytic anemia HH11.6 36.6, Full code Diet clear liquids SCDs DVT Disposition Return to [facility], fall precaution unknown baseline Discharge Plan: Shelter - Code Status/Comfort Care Code Status: Full Code Critical Care: No Time Spent Managing PTS Care (In Minutes): 35 <Mary East - Last Filed: 08/24/23 14:00> - Plan Pt seen and examined. I agree with the note by the NEEDLE PUNCH MACHINE OPERATOR. is back to his baseline. Will dc back to the NH. <Ishan Quintanilla - Last Filed: 08/25/23 22:27>
--- NOTE | 2023-08-24 08:37 | RAD REPORT ---
EXAM DESCRIPTION: RAD - Abdomen 1 View (KUB) - 08/24/2023 6:04 am CLINICAL HISTORY: evaluate impaction COMPARISON: Chest Abdomen Pelvis W Cont dated 08/23/2023 TECHNIQUE: Single AP view of the abdomen. FINDINGS: Marked colonic distention with large stool burden along the cecum and descending colon and rectum again seen. Nonobstructive small bowel gas pattern. No air-fluid levels, free air, or pneumat osis. No suspicious calcifications. No significant bony abnormality. IMPRESSION: Stable marked colonic distention with large stool burden.
--- NOTE | 2023-08-25 08:18 | P.DS ---
Admission Date: 08/23/23 Discharge Date: 08/25/23 Reason for Admission: Dehydration Brief History of Present Illness: 67-year-old -South African male with past medical history of dementia, anxiety, diabetes, [id number], hypertension, presents to the emergency room via EMS for AMS with dehydration, poor p.o. intake. HPI limited due to patient's nonverbal, ER evaluation EKG sinus rhythm rate [address] changes. Vital signs signs blood pressure 106/84 heart rate 78, respirations 16, 100% on room air. CT of the brain no acute intracranial hemorrhage or mass or edema., Diffuse para in kilo volume loss, hypodensities nonspecific, suggestive of chronic small vessel ischemic changes, CT of the chest and abdomen, gaseous distention, elevation of left hemidiaphragm, lungs are clear, laboratory evaluation microcytic anemia 11.6 36.6, early left shift 80.5 acute on chronic kidney injury BUN 46 creatinine 1.28, blood glucose 128, COVID- negative, plan to admit for altered mental status, dehydration, fecal impaction, - Physical Exam General: Alert, Confused, Other (Nonverbal) HEENT: Atraumatic, Normocephalic Neck: Supple, JVD not distended Respiratory: Clear to auscultation bilaterally, Normal air movement Cardiovascular: No edema, Normal pulses Capillary refill: <2 Seconds Gastrointestinal: Other (Fecal impaction, digital removal) Musculoskeletal: Other (Generalized weakness unknown baseline) Integumentary: Other (Dry skin) Neurological: Other (, Total care, alert and oriented x 1) Hospital Course: 67 year-old male patient presented with fecal impaction, poor appetite.anorexia. Was noted to have the patient with fecal impaction. Condition improved with stool softeners, digital impaction removal in the emergency room. Patient anorexia continues. Patient is at baseline for discharge. Stable for discharge to home with follow-up appointment with primary care physician. PROBLEM: Anorexia Constipation Dementia Flat affect Total care Resume as needed stool softeners after discharge Continue home medicines as previously prescribed GOAL: Clear understanding of disease process INSTRUCTIONS: Physician Discharge Instructions: -Follow-up with PCP in 1 to 2 weeks -Please call if any questions regarding hospital stay -Please call nursing station at [phone] if any nursing or medication questions -Return to the emergency room if symptoms worsen Diet: ADA, low sodium Activity: Fall precautions <Moosa,Mary - Last Filed: 08/25/23 11:59> Admission Date: 08/23/23 Discharge Date: 08/25/23 Hospital Course: Pt seen and examined. I agree with note by the GUM MAKER. Pt's mentation improved. Constipation resolved s/p dis-impaction. Pt tolerated clear liquid diet. Will discharge to SNF soon. <Ishan Quintanilla - Last Filed: 08/25/23 13:05> Disposition: TRANSFER TO JAIL Vital Signs/Physical Exam: Temp Pulse Resp BP Pulse Ox 98.1 F 65 16 116/83 97 08/25/23 04:00 08/25/23 04:00 08/25/23 04:00 08/25/23 04:00 08/25/23 04:00 Laboratory Data at Discharge: WBC 7.10 thou/uL (4.3-10.9) 08/24/23 06:07 Hgb 10.4 g/dL (13.6-17.9) L D 08/24/23 06:07 Hct 31.9 % (39.6-49.0) L 08/24/23 06:07 Plt Count 147 thou/uL (152-406) L D 08/24/23 06:07 PT 12.5 SECONDS (9.5-12.5) 08/23/23 16:01 INR 1.14 08/23/23 16:01 APTT 29.0 SECONDS (24.3-36.9) 08/23/23 16:01 Sodium 144 mEq/L (136-145) 08/24/23 06:07 Potassium 3.9 mEq/L (3.5-5.1) 08/24/23 06:07 BUN 41 mg/dL (7-18) H 08/24/23 06:07 Creatinine 0.91 mg/dL (0.70-1.30) 08/24/23 06:07 Glucose 106 mg/dL (74-106) 08/24/23 06:07 Magnesium 1.9 mg/dL (1.6-2.4) 08/24/23 06:07 Total Bilirubin 1.5 mg/dL (0.2-1.0) H 08/23/23 10:15 AST 58 U/L (15-37) H 08/23/23 10:15 ALT 16 U/L (16-61) 08/23/23 10:15 Alkaline Phosphatase 73 U/L (45-117) 08/23/23 10:15 <Mary East - Last Filed: 08/25/23 11:59> Vital Signs/Physical Exam: Temp Pulse Resp BP Pulse Ox 97.4 F 82 18 146/92 H 96 08/25/23 12:00 08/25/23 12:00 08/25/23 12:00 08/25/23 12:00 08/25/23 12:00 Laboratory Data at Discharge: WBC 7.30 thou/uL (4.3-10.9) 08/25/23 10:05 Hgb 10.8 g/dL (13.6-17.9) L 08/25/23 10:05 Hct 33.8 % (39.6-49.0) L 08/25/23 10:05 Plt Count 173 thou/uL (152-406) 08/25/23 10:05 PT 12.5 SECONDS (9.5-12.5) 08/23/23 16:01 INR 1.14 08/23/23 16:01 APTT 29.0 SECONDS (24.3-36.9) 08/23/23 16:01 Sodium 144 mEq/L (136-145) 08/25/23 10:05 Potassium 3.6 mEq/L (3.5-5.1) 08/25/23 10:05 BUN 39 mg/dL (7-18) H 08/25/23 10:05 Creatinine 0.91 mg/dL (0.70-1.30) 08/25/23 10:05 Glucose 105 mg/dL (74-106) 08/25/23 10:05 Magnesium 2.0 mg/dL (1.6-2.4) 08/25/23 10:05 Total Bilirubin 1.5 mg/dL (0.2-1.0) H 08/23/23 10:15 AST 58 U/L (15-37) H 08/23/23 10:15 ALT 16 U/L (16-61) 08/23/23 10:15 Alkaline Phosphatase 73 U/L (45-117) 08/23/23 10:15 <Ishan Quintanilla - Last Filed: 08/25/23 13:05> Activity: Fall precautions Time spent managing pt's care (in minutes): 55 <Mary East - Last Filed: 08/25/23 11:59> <Ishan Quintanilla - Last Filed: 08/25/23 13:05> Home Medications: Docusate Sodium 100 mg PO BID 08/23/23 Ferrous Sulfate [Ferrous Sulfate*] 325 mg PO DAILY 08/23/23 Enema, Fleet Adult [Fleet Enema Adult*] 133 ml PA BID PRN bottle 08/25/23 Mag Hydroxide 8% [Milk Of Magnesia*] 30 ml PO BID 08/25/23 Physician Discharge Instructions: 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 Was noted to have the patient with fecal impaction. Condition improved with stool softeners, digital impaction removal in the emergency room. Patient anorexia continues. Patient is at baseline for discharge. Stable for discharge to home with follow-up appointment with primary care physician. PROBLEM: Anorexia Constipation Dementia Flat affect Total care Resume as needed stool softeners after discharge Continue home medicines as previously prescribed GOAL: Clear understanding of disease process INSTRUCTIONS: Physician Discharge Instructions: -Follow-up with PCP in 1 to 2 weeks -Please call if any questions regarding hospital stay -Please call nursing station at [phone] if any nursing or medication questions -Return to the emergency room if symptoms worsen Diet: ADA, low sodium Activity: Fall precautions Followup: NONE,NONE [Primary Care Provider] -
[2023-08-25 10:34] LABS: Absolute Basophils 0.1 K/uL (0-0.5); Absolute Eosinophils 0.1 K/uL (0-0.5); Absolute Lymphocytes (CBC) 1.3 K/uL (0.7-4.9); Absolute Monocytes 0.4 K/uL (0.1-1.3); Absolute Neutrophil 5.4 K/uL (1.8-8.0); Basophils % 0.7 % (0-1.3); Eosinophils % 1.3 % (0-4.4); Hematocrit 33.8 % (39.6-49.0); Hemoglobin 10.8 g/dL (13.6-17.9); Lymphocytes % 17.9 % (15.3-44.8); MCH 23.2 pg (27.0-35.0); MCV 72.5 fL (80-100); MPV 10.3 fL (7.6-11.3); Monocytes % 5.5 % (3.3-12.3); Neutrophils % 74.6 % (41.7-73.7); Nucleated Red Blood Cells % 0.1 % (0-0); Platelets 173 thou/uL (152-406); RBC Red Blood Cell Count 4.66 M/uL (4.33-5.43); Red Cell Distribution Width 16.5 % (12.1-15.2)
[2023-08-25 10:46] LABS: Anion Gap 9.6 mEq/L (5.0-15.0); Potassium 3.6 mEq/L (3.5-5.1)
[2023-08-25 13:22] VITALS: BP 146/92; TEMP 97.4
--- NOTE | 2023-08-25 14:32 | EKG ---
Test Date: 2023-08-23 Test Time: 09:37:13 Stone Rigger: DONALD MEASUREMENT RESULTS: Intervals: Rate: 97 WY: 154 QRSD: 82 QT: 360 QTc: 457 [place]: P: 89 WY: 154 QRS: 82 T: 81 INTERPRETIVE STATEMENTS: Normal sinus rhythm Normal ECG Compared to ECG 12/14/2021 15:20:54 Sinus bradycardia no longer present Ventricular premature complex(es) no longer present Electronically Signed On 08-25-23 14:24:42 CDT by Сергей Araujo
== END 2023-08-25 15:37 | DRG 388 ==
LOC: ER 09:32 → ERHOLD 14:19 → 4TH 17:56
PROVIDERS: ADMIT Hospitalist; ATTEND Hospitalist
DX: K56.41 Fecal impaction (principal); G93.41 Metabolic encephalopathy; N17.9 Acute kidney failure, unspecified; E86.0 Dehydration; L89.621 Pressure ulcer of left heel, stage 1; E78.5 Hyperlipidemia, unspecified; I95.9 Hypotension, unspecified; E86.9 Volume depletion, unspecified; I12.9 Hypertensive chronic kidney disease with stage 1 through stage 4 chronic kidney disease, or unspecified chronic kidney disease; N18.9 Chronic kidney disease, unspecified; E11.22 Type 2 diabetes mellitus with diabetic chronic kidney disease; D63.1 Anemia in chronic kidney disease; D50.9 Iron deficiency anemia, unspecified; I25.10 Atherosclerotic heart disease of native coronary artery without angina pectoris; F03.90 Unspecified dementia, unspecified severity, without behavioral disturbance, psychotic disturbance, mood disturbance, and anxiety; R63.0 Anorexia; Z88.6 Allergy status to analgesic agent; Z11.52 Encounter for screening for COVID-19; Z68.25 Body mass index [BMI] 25.0-25.9, adult
CPT/HCPCS: 36415; 51702; 70450; 71045; 71260; 74018; 74177; 80048; 80053; 81001; 82947; 83605; 83735; 83880; 85025; 85610; 85730; 87040; 87804; 87811; 92610; 93005; 96360; 96361; 97161; 97530; 99285; J7030; Q9967

== ENCOUNTER 2023-08-31 18:10 | Inpatient (IN) | payer OTHER ==
--- NOTE | 2023-08-31 19:29 | EDPHYS ---
Physician Documentation [facility] Name: Jonathan Mark Age: 67 yrs Sex: Male : 1955 Arrival Date: 08/31/2023 Time: 18:10 Bed 4 Private MD: ED Physician Jose Alfredo Lord HPI: 08/30 19:02 This 67 yrs old Black Male presents to ER via EMS with complaints of WEAK , NOT EATING, wendy WORSE SINCE LAST DC. 19:02 WEAK, APHASIC , NOT EATING. Severity of symptoms: At their worst the symptoms were mild wendy in the emergency department the symptoms are unchanged. The patient has not experienced similar symptoms in the past. Historical: - Allergies: 18:29 Aspirin; kd3 - PMHx: 18:29 Alzheimer's disease; Alzheimer's disease; Anemia; Anxiety; depressive disorder; kd3 depressive disorder; Diabetes - NIDDM; Dementia; Dementia; diabetes mellitus; diabetes mellitus; Hyperlipidemia; Hyperlipidemia; Hypertension; insomnia; - Immunization history:: Adult Immunizations up to date. - Social history:: Smoking status: unknown. - Family history:: not pertinent. ROS: 19:02 Constitutional: Negative for fever, chills, and weight loss, Eyes: Negative for injury, wendy pain, redness, and discharge, ENT: Negative for injury, pain, and discharge, Neck: Negative for injury, pain, and swelling, Cardiovascular: Negative for chest pain, palpitations, and edema, Respiratory: Negative for shortness of breath, cough, wheezing, and pleuritic chest pain, Abdomen/GI: Negative for abdominal pain, nausea, vomiting, diarrhea, and constipation, Back: Negative for injury and pain, : Negative for injury, bleeding, discharge, and swelling, MS/Extremity: Negative for injury and deformity, Skin: Negative for injury, rash, and discoloration, Psych: Negative for depression, anxiety, suicide ideation, homicidal ideation, and hallucinations, Allergy/Immunology: Negative for hives, rash, and allergies, Endocrine: Negative for neck swelling, polydipsia, polyuria, polyphagia, and marked weight changes, Hematologic/Lymphatic: Negative for swollen nodes, abnormal bleeding, and unusual bruising, 19:02 Neuro: Positive for altered mental status, weakness, Exam: 19:02 Constitutional: This is a well developed, well nourished patient who is awake, alert, wendy and in no acute distress. Head/Face: Normocephalic, atraumatic. Eyes: Pupils equal round and reactive to light, extra-ocular motions intact. Lids and lashes normal. Conjunctiva and sclera are non-icteric and not injected. Cornea within normal limits. Periorbital areas with no swelling, redness, or edema. ENT: Nares patent. No nasal discharge, no septal abnormalities noted. Tympanic membranes are normal and external auditory canals are clear. Oropharynx with no redness, swelling, or masses, exudates, or evidence of obstruction, uvula midline. Mucous membranes moist. Neck: Trachea midline, no thyromegaly or masses palpated, and no cervical lymphadenopathy. Supple, full range of motion without nuchal rigidity, or vertebral point tenderness. No Meningismus. Chest/axilla: Normal chest wall appearance and motion. Nontender with no deformity. No lesions are appreciated. Cardiovascular: Regular rate and rhythm with a normal S1 and S2. No gallops, murmurs, or rubs. Normal PMI, no JVD. No pulse deficits. Respiratory: Lungs have equal breath sounds bilaterally, clear to auscultation and percussion. No rales, rhonchi or wheezes noted. No increased work of breathing, no retractions or nasal flaring. Abdomen/GI: Soft, non-tender, with normal bowel sounds. No distension or tympany. No guarding or rebound. No evidence of tenderness throughout. Back: No spinal tenderness. No costovertebral tenderness. Full range of motion. Skin: Warm, dry with normal turgor. Normal color with no rashes, no lesions, and no evidence of cellulitis. MS/ Extremity: Pulses equal, no cyanosis. Neurovascular intact. Full, normal range of motion. Psych: Awake, alert, with orientation to person, place and time. Behavior, mood, and affect are within normal limits. 19:02 Neuro: Orientation: unable to test, Mentation: appropriate for stated age, Memory: unable to test, Cranial nerves: grossly normal, is grossly normal based on the patient's age, no acute changes, Cerebellar function: unable to test, Motor: moves all fours, Strength is 3/5 in the right arm, left arm, right leg and left leg, Gait: not tested. seizure activity, is not displayed by the patient, 19:46 ECG was reviewed by the Attending Physician. [facility] Vital Signs: 18:26 BP 119 / 95; Pulse 77; Resp 18; Temp 98.2(O); Pulse Ox 97% on R/A; Weight 81 kg; kd3 18:40 BP 135 / 95; Pulse 79; Resp 19; Pulse Ox 98% on R/A; nj1 22:26 BP 120 / 91; Pulse 71; Resp 16; Pulse Ox 99% on R/A; tm6 MDM: 18:22 Patient medically screened. [facility] 19:07 Differential Diagnosis altered mental status, sepsis. Data reviewed: vital signs, [facility] nurses notes, EMS record, lab test result(s), EKG, radiologic studies, CT scan, plain films. Consideration of Admission/Observation Patient was admitted/placed on observation. Escalation of care including admission/observation considered. I considered the following discharge prescriptions or medication management in the emergency department Medications were administered in the Emergency Department. See MAR. Independent interpretation of the following test(s) in the Emergency Department EKG: See my EKG interpretation above. Test considered but Not performed: MRI: NO MRI BRAIN. Historians other than the Patient: Family Member: AND OTHER FAMILY MEMBERS WELL INFORMED. Care significantly affected by the following chronic conditions: Diabetes, Hypertension, ALHHEIMERS, ANEMIA, DEPRESSION, ANXIETY. Counseling: I had a detailed discussion with the patient and/or guardian regarding the historical points, exam findings, and any diagnostic results supporting the discharge/admit diagnosis, the presence of at least one elevated blood pressure reading (>120/80) during this emergency department visit, lab results, radiology results, the need for further work-up and treatment in the hospital. 08/30 18:43 Order name: Basic Metabolic Panel; Complete Time: 21:27 [facility] 08/30 18:43 Order name: CBC with Diff; Complete Time: 21: [facility] 08/30 18:43 Order name: LFT's; Complete Time: 21: [facility] 08/30 18:43 Order name: Magnesium; Complete Time: 21:27 [facility] 08/30 18:43 Order name: NT PRO-BNP; Complete Time: 21:27 [facility] 08/30 18:43 Order name: PT-INR; Complete Time: 21:27 [facility] 08/30 18:43 Order name: Troponin HS; Complete Time: 21: [facility] 08/30 18:43 Order name: Lipase; Complete Time: 21:27 [facility] 08/30 18:43 Order name: Urinalysis w/ reflexes [facility] 08/30 22:04 Order name: C-Reactive Protein [facility] 08/30 22:04 Order name: C-Reactive Protein [facility] 08/30 22:04 Order name: CBC with Automated Diff [facility] 08/30 22:04 Order name: CBC with Automated Diff [facility] 08/30 22:04 Order name: Comprehensive Metabolic Panel [facility] 08/30 22:04 Order name: Comprehensive Metabolic Panel [facility] 08/30 18:43 Order name: XRAY Chest (1 view); Complete Time: 21:27 [facility] 08/30 18:43 Order name: CT Traumagram (Head C Spine CAP wo con); Complete Time: 20:07 [facility] 08/30 22:06 Order name: Barium Swallow Modified [facility] 08/30 18:43 Order name: EKG; Complete Time: 18:44 [facility] 08/30 22:04 Order name: Dietitian Consult [facility] 08/30 22:04 Order name: Speech Therapy Consult [facility] 08/30 18:43 Order name: Cardiac monitoring; Complete Time: 19:16 [facility] 08/30 18:43 Order name: EKG - Nurse/Tech; Complete Time: 19:16 [facility] 08/30 18:43 Order name: IV Saline Lock; Complete Time: 20:18 [facility] 08/30 18:43 Order name: Labs collected and sent; Complete Time: 20:18 [facility] 08/30 18:43 Order name: O2 Per Protocol; Complete Time: 19:16 [facility] 08/30 18:43 Order name: O2 Sat Monitoring; Complete Time: 19:16 [facility] 08/30 18:43 Order name: Misc. Order: HOB AT 40; Complete Time: 19:16 [facility] EC:46 Rate is 79 beats/min. Rhythm is regular. QRS [place] is Normal. OR interval is normal. QRS wendy interval is normal. QT interval is normal. No Q waves. T waves are Normal. No ST changes noted. Clinical impression: NSR w/ Non-specific ST/T Changes and No evidence of ischemia. Interpreted by me. Reviewed by me. Administered Medications: 20:18 Drug: NS 0.9% IV 500 ml IV at bolus once Route: IV; Rate: bolus; Site: left antecubital;jb4 21:12 Follow up: Response: No adverse reaction; IV Status: Completed infusion; IV Intake: jb4 500ml 20:18 Drug: Famotidine IVP 20 mg IVP once; dilute with 10 mL 0.9% NaCl; give over 2 minutes jb4 Route: IVP; Site: left antecubital; 20:18 Drug: Solu-CORTEF IVP 100 mg IVP once Route: IVP; Site: left antecubital; jb4 21:12 Drug: NS 0.9% IV 1000 ml IV at 125 ml/hr continuous Route: IV; Rate: 125 ml/hr; Site: jb4 left antecubital; 22:28 Drug: Dulcolax OR Suppository 10 mg OR once Route: OR; jb4 Disposition Summary: 08/31/23 19:29 Hospitalization Ordered Notes: Hospitalization Status: Inpatient Admission wendy Provider: Renae Nevarez cha Location: Telemetry/MedSurg (Inpatient) wendy Condition: Fair wendy Problem: new wendy Symptoms: have improved wendy Bed/Room Type: Standard [facility] Room Assignment: 429(08/31/23 22:16) rv1 Diagnosis - Weakness wendy - Anorexia wendy - Alzheimer's disease, unspecified wendy - Moderate protein-calorie malnutrition wendy - Constipation - IMPACTION, FECAL wendy Forms: - Medication Reconciliation Form wendy - SBAR form wendy - Leadership Thank You Letter wendy Signatures: Dispatcher [employer] Hayley Valdes, COCOA BEAN ROASTER-C [employer] BEAN ROASTER-Jose Alfredo Fuller MD MD cha Bryson, James RN RN jb4 Adina Villalpando RN RN kd3 Eunice Holland rv1 Corrections: (The following items were deleted from the chart) 22:16 19:29 wendy rv1
--- NOTE | 2023-08-31 19:29 | ER ---
Nurse's Notes [facility] Name: Jonathan Mark Age: 67 yrs Sex: Male : 1955 Arrival Date: 08/31/2023 Time: 18:10 Bed 4 Private MD: Diagnosis: Weakness;Anorexia;Alzheimer's disease, unspecified;Moderate protein-calorie malnutrition;Constipation-IMPACTION, FECAL Presentation: 08/30 18:26 Chief complaint: EMS states: EMS was paged out to [facility] because the kd3 patient had not been actin himself. [facility] nurse stated that the patient used to stand up, walk around, feed himself but now does not get out of bed and does not eat much. He reportedly has "been this way since last time" he was at this hospital. Pt has a known history of Alzheimer's/ dementia and does not speak at baseline. Coronavirus screen: Vaccine status: Patient reports receiving the 2nd dose of the covid vaccine. Ebola Screen: No symptoms or risks identified at this time. Initial Sepsis Screen: Does the patient meet any 2 criteria? No. Patient's initial sepsis screen is negative. Does the patient have a suspected source of infection? No. Patient's initial sepsis screen is negative. Risk Assessment: Do you want to hurt yourself or someone else? Patient reports no desire to harm self or others. Onset of symptoms was August 23, 2023. 18:26 Method Of Arrival: EMS: [facility] kd3 18:26 Acuity: ROGELIO 3 kd3 Triage Assessment: 18:29 General: Appears in no apparent distress. Behavior is calm, cooperative. Pain: Unable 3 to use pain scale. Does not appear to understand pain scale. Historical: - Allergies: 18:29 Aspirin; kd3 - PMHx: 18:29 Alzheimer's disease; Alzheimer's disease; Anemia; Anxiety; depressive disorder; kd3 depressive disorder; Diabetes - NIDDM; Dementia; Dementia; diabetes mellitus; diabetes mellitus; Hyperlipidemia; Hyperlipidemia; Hypertension; insomnia; - Immunization history:: Adult Immunizations up to date. - Social history:: Smoking status: unknown. - Family history:: not pertinent. Screenin:40 [facility] ED Fall Risk Assessment (Adult) History of falling in the last 3 months, nj1 including since admission No falls in past 3 months (0 pts) Confusion or Disorientation Yes (5 pts) Intoxicated or Sedated No (0 pts) Impaired Gait Yes (1 pt) Mobility Assist Device Used Yes (1 pt) Altered Elimination Yes (1 pt) Score/Fall Risk Level 3 or more points = High Risk Oriented to surroundings, Maintained a safe environment, Hourly rounding (assess needs \\T\\ fall precautionary measures) done, Used ambulatory aids as needed (educated on \\T\\ assisted with), Utilized family, sitter, or virtual correctional probation officer as indicated. Abuse screen: Denies threats or abuse. Denies injuries from another. Nutritional screening: No deficits noted. Tuberculosis screening: No symptoms or risk factors identified. Assessment: 18:40 General: Appears in no apparent distress. comfortable, Behavior is calm. Pain: Unable nj1 to use pain scale. Does not appear to understand pain scale. Non verbal. 18:40 Neuro: Level of Consciousness is awake, alert, confused, Oriented to Non verbal. nj1 Cardiovascular: Patient's skin is warm and dry. Respiratory: Airway is patent Respiratory effort is even, unlabored. GI: Parent/caregiver reports the patient having Not eating/drinking. 22:25 Reassessment: No changes from previously documented assessment. Patient and/or family tm6 updated on plan of care and expected duration. Pain level reassessed. report faxed. Vital Signs: 18:26 BP 119 / 95; Pulse 77; Resp 18; Temp 98.2(O); Pulse Ox 97% on R/A; Weight 81 kg; kd3 18:40 BP 135 / 95; Pulse 79; Resp 19; Pulse Ox 98% on R/A; nj1 22:26 BP 120 / 91; Pulse 71; Resp 16; Pulse Ox 99% on R/A; tm6 ED Course: 18:20 Patient arrived in ED. ds4 18:22 Jose Alfredo Lord MD is Attending Physician. wendy 18:26 Adina Villalpando, ALEX is Primary Nurse. kd3 18:29 Triage completed. kd3 18:29 Arm band placed on left wrist. kd3 18:40 Patient has correct armband on for positive identification. Bed in low position. Call nj1 light in reach. Side rails up X 1. Adult w/ patient. 19:00 Client placed on continuous cardiac and pulse oximetry monitoring. NIBP monitoring tm6 applied. apron worker on. Pulse ox on. NIBP on. 19:05 Report given to Venkata RN, and Cheli RN. nj1 19:24 CT Traumagram (Head C Spine CAP wo con) In Process Unspecified. EDMS 19:27 Renae Nevarez MD is Hospitalizing Provider. wendy 19:59 Lipase Sent. jb4 19:59 Basic Metabolic Panel Sent. jb4 19:59 CBC with Diff Sent. jb4 19:59 LFT's Sent. jb4 19:59 Magnesium Sent. jb4 19:59 NT PRO-BNP Sent. jb4 19:59 Troponin HS Sent. jb4 19:59 PT-INR Sent. jb4 20:05 XRAY Chest (1 view) In Process Unspecified. EDMS 22:21 Urinalysis w/ reflexes Sent. tm6 23:06 No provider procedures requiring assistance completed. Patient admitted, IV remains in tm6 place. 23:07 Provided Education on: need for admit. Client placed on continuous cardiac and pulse tm6 oximetry monitoring. NIBP monitoring applied. apron worker on. Pulse ox on. NIBP on. Administered Medications: 20:18 Drug: NS 0.9% IV 500 ml IV at bolus once Route: IV; Rate: bolus; Site: left antecubital;jb4 21:12 Follow up: Response: No adverse reaction; IV Status: Completed infusion; IV Intake: jb4 500ml 20:18 Drug: Famotidine IVP 20 mg IVP once; dilute with 10 mL 0.9% NaCl; give over 2 minutes jb4 Route: IVP; Site: left antecubital; 20:18 Drug: Solu-CORTEF IVP 100 mg IVP once Route: IVP; Site: left antecubital; jb4 21:12 Drug: NS 0.9% IV 1000 ml IV at 125 ml/hr continuous Route: IV; Rate: 125 ml/hr; Site: jb4 left antecubital; 22:28 Drug: Dulcolax IA Suppository 10 mg IA once Route: IA; jb4 Medication: 23:07 VIS not applicable for this client. tm6 Intake: 21:12 IV: 500ml; Total: 500ml. jb4 Outcome: 19:29 Decision to Hospitalize by Provider. wendy 23:06 Admitted to Med/surg accompanied by tech, via stretcher, room 429, with chart, Report tm6 called to report faxed 23:06 Condition: stable 23:06 Instructed on the need for admit, 23:07 Patient left the ED. tm6 Signatures: Dispatcher [employer] EDJose Alfredo Anaya MD MD cha Swanson, Donovan ds4 Tereso Marcos, RN RN jb4 Adina Villalpando, RN RN kd3 Gisel Padgett RN RN nj1 Cheli Valencia RN RN tm6
[2023-08-31] MEDS ORDERED: HYDROCORTISONE SUC 100 MG INJ ONE (20:01)
[2023-08-31] MEDS ORDERED: NA CHLORIDE 0.9% 1,000 ML ONE (20:02)
[2023-08-31] MEDS ORDERED: FAMOTIDINE 20 MG/2 ML VIAL IV ONE (20:02)
--- NOTE | 2023-08-31 20:02 | RAD REPORT ---
EXAM DESCRIPTION: CT - Head C Spine Cap Raissa Austin - 08/31/2023 7:23 pm CLINICAL HISTORY: Confusion, neck, chest and abdominal pain TECHNIQUE: Computed axial tomography of head, neck, chest, abdomen and pelvis obtained. IV and oral contrast not requested. Coronal and sagittal reconstruction performed. All CT scans are performed using dose optimization technique as appropriate and may include automated exposure control or mA/KV adjustment according to patient size. COMPARISON: August 2023 FINDINGS: An intracranial bleed is not seen. The ventricles are normal in caliber. An extra-axial fluid collection is not noted. Prominent cerebral atrophy Fluid within the sinuses/mastoids is not seen. A cervical fracture is not seen. No dislocation is noted. No high-grade central/foraminal stenosis se en The evaluation of mediastinum, tarun, vessels, solid organs and bowel are limited secondary to the lac k of contrast administration. Calcified granuloma right lung. Calcified right hilar lymph node. No pericardial fusion. No pleural effusion. The liver, spleen, pancreas, adrenals and kidneys grossly normal Rectum is distended with stool measuring 8 centimeters. Large amount of stool is present throughout t he colon. Transverse colon measures 8.5 centimeters Mild elevation right hemidiaphragm IMPRESSION: No acute intracranial abnormality is seen. No acute cervical spine abnormality Large amount stool present throughout the colon. The colon is moderately dilated. The patient likely has a fecal impaction
[2023-08-31 20:09] LABS: PT Prothrombin Time 12.9 SECONDS (9.5-12.5); Protime INR 1.18
[2023-08-31 20:16] LABS: Absolute Basophils 0.1 K/uL (0-0.5); Absolute Eosinophils 0.1 K/uL (0-0.5); Absolute Lymphocytes (CBC) 1.5 K/uL (0.7-4.9); Absolute Monocytes 0.5 K/uL (0.1-1.3); Absolute Neutrophil 4.8 K/uL (1.8-8.0); Basophils % 1.2 % (0-1.3); Eosinophils % 1.1 % (0-4.4); Hematocrit 33.7 % (39.6-49.0); Lymphocytes % 21.6 % (15.3-44.8); MCH 23.3 pg (27.0-35.0); MCHC 32.6 g/dL (32.0-36.0); MCV 71.7 fL (80-100); MPV 9.8 fL (7.6-11.3); Monocytes % 6.8 % (3.3-12.3); Neutrophils % 69.3 % (41.7-73.7); Platelets 227 thou/uL (152-406)
--- NOTE | 2023-08-31 20:36 | RAD REPORT ---
EXAM DESCRIPTION: [facility] Single View08/31/2023 8:03 pm CLINICAL HISTORY: cough COMPARISON: August 23, 2023 FINDINGS: The lungs appear clear of acute infiltrate. The heart is normal size Bowel abuts the right and left hemidiaphragm
[2023-08-31 20:45] LABS: Albumin 3.6 g/dL (3.4-5.0); Anion Gap 8.3 mEq/L (5.0-15.0); Bilirubin Direct 0.2 mg/dL (0-0.2); Bilirubin Indirect, Calculated 0.6 mg/dL (0.2-0.8); Bilirubin Total 0.8 mg/dL (0.2-1.0); Globulin 3.5 g/dL (2.3-3.5); Magnesium 2.4 mg/dL (1.6-2.4); Potassium 4.3 mEq/L (3.5-5.1); Protein, Total 7.1 g/dL (6.4-8.2); Troponin High Sensitivity 7.3 pg/mL (<58.9)
[2023-08-31] MEDS ORDERED: ONDANSETRON 4 MG/2 ML VIAL IV PRN (21:56)
[2023-08-31] MEDS ORDERED: MORPHINE 2 MG/ML SYR IV PRN (21:56)
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
[2023-08-31] MEDS ORDERED: BISACODYL 10 MG RECTAL SUPP ONE (22:21)
[2023-08-31 22:35] LABS: Specific Gravity 1.023 (1.005-1.030); Sqamous Epithelial None Seen /HPF (None Seen); Urine Bacteria None Seen /HPF (<20); Urine Bilirubin NEGATIVE (Negative); Urine Blood Trace (Negative); Urine Clarity Clear (Clear); Urine Color Yellow (Yellow); Urine Culture Reflex Order NOT NEEDED; Urine Glucose NEGATIVE (Negative); Urine Ketones 1+ (Negative); Urine Microscopic Reflex YN ORDER UMIC; Urine Mucus Slight /HPF (None Seen); Urine Nitrite NEGATIVE (Negative); Urine Protein TRACE (Negative); Urine RBC 21-50 /HPF (None Seen); Urine Urobilinogen 1+ (Normal); Urine WBC <5 /HPF (<5); Urine pH 6.5 (5.0-7.0)
[2023-08-31] MEDS: NA CHLORIDE 0.9% 1,000 ML IV SCH (23:49)
[2023-09-01] MEDS: METHYLPREDNISOLONE 125 MG INJ IV SCH (00:16)
[2023-09-01 07:14] LABS: PT Prothrombin Time 12.4 SECONDS (9.5-12.5); PTT, Activated Partial Thromb 30.8 SECONDS (24.3-36.9); Protime INR 1.13
[2023-09-01 07:15] LABS: Percent Reticulocyte Count 1.22 % (0.4-2.05); RBC Red Blood Cell Count 4.46 M/uL (4.33-5.43)
[2023-09-01 07:16] LABS: Absolute Lymphocytes (CBC) 0.3 K/uL (0.7-4.9); Absolute Neutrophil 3.9 K/uL (1.8-8.0); Basophils % 0.2 % (0-1.3); Hematocrit 31.6 % (39.6-49.0); Hemoglobin 10.3 g/dL (13.6-17.9); Lymphocytes % 8.2 % (15.3-44.8); MCH 23.5 pg (27.0-35.0); MCHC 32.6 g/dL (32.0-36.0); MCV 71.9 fL (80-100); MPV 9.4 fL (7.6-11.3); Neutrophils % 90.6 % (41.7-73.7); Platelets 209 thou/uL (152-406); Red Cell Distribution Width 15.8 % (12.1-15.2)
[2023-09-01 07:30] LABS: ALT/SGPT 15 U/L (16-61); AST/SGOT 13 U/L (15-37); Albumin 3.3 g/dL (3.4-5.0); Alkaline Phosphatase 61 U/L (45-117); BUN Blood Urea Nitrogen 25 mg/dL (7-18); Bicarbonate 24 mEq/L (21-32); Bilirubin Total 0.8 mg/dL (0.2-1.0); Globulin 3.2 g/dL (2.3-3.5); Glomerular Filtration Rate 97 ml/min (=/>90); Glucose Level 141 mg/dL (74-106); Protein, Total 6.5 g/dL (6.4-8.2); Sodium Level 139 mEq/L (136-145)
[2023-09-01 07:31] LABS: C-Reactive Protein < 2.90 mg/L (<3.00)
[2023-09-01 07:55] LABS: Magnesium 2.2 mg/dL (1.6-2.4); Thyroid Stimulating Hormone 1.2 uIU/mL (0.358-3.740)
[2023-09-01 07:58] LABS: Anisocytosis 1+; Blood Morphology Comment NOTED (NOT SEEN); Hypochromasia 2+; Platelet Estimate ADEQ; White Blood Cell Scan OK (OK)
[2023-09-01] MEDS ORDERED: PNEUMOCOCCAL VACCINE 0.5 ML IMVAC ONE (10:00)
[2023-09-01] MEDS ORDERED: INFLUENZA VACCINE (for 6+ mo) 0.5 ML DOSE IMVAC ONE (10:00)
--- NOTE | 2023-09-01 15:16 | RAD REPORT ---
EXAM DESCRIPTION: RAD - Barium Swallow Modified - 09/01/2023 2:00 pm CLINICAL HISTORY: Dysplasia COMPARISON: None. TECHNIQUE: The patient was given liquid, semi-solid and solid forms of barium. Lateral view fluorosc opic imaging was performed in conjunction with speech pathology service. Fluoroscopy time: 2:33 minutes. FINDINGS: No laryngeal penetration or aspiration noted. Pooling in the pyriforms and swallow delay n oted. IMPRESSION: No laryngeal penetration or aspiration noted. Please refer to speech pathology report fo r additional details.
[2023-09-01] MEDS: HALOPERIDOL LACT 5 MG/ML INJ IV PRN (17:09)
--- NOTE | 2023-09-01 18:07 | P.PN ---
Subjective Date of Service: 09/01/23 Chief Complaint: Dysphagia Nursing staff reports patient has been intermittently agitated. No issues overnight. Patient is awake but mute and not able to obtain any subjective complaint. Spouse mention patient has been intermittently constipated. Physical Examination - Vital Signs Temperature: 97.4 F Blood Pressure: 163/91 Pulse: 62 Respirations: 15 Pulse Ox (%): 97 - Studies Laboratory Data (last 24 hrs) 08/31/23 08/31/23 08/31/23 19:49 19:49 19:49 WBC 6.90 Hgb 11.0 L Hct 33.7 L Plt Count 227 PT 12.9 H INR 1.18 Sodium 138 Potassium 4.3 BUN 18 Creatinine 1.02 Glucose 98 Magnesium 2.4 Total Bilirubin 0.8 AST 17 ALT 16 Alkaline Phosphatase 66 Lipase 19 Assessment And Plan - Current Problems (Diagnosis) (1) Functional constipation Current Visit: Yes Status: Acute (2) Alzheimer's dementia with behavioral disturbance Current Visit: Yes Status: Acute (3) Microcytic hypochromic anemia Current Visit: Yes Status: Acute - Plan Physical examination General: Awake, mute, NAD, HEENT: Conjunctiva not pale, anicteric sclera Neck: Supple, no elevated JVD Heart: Heart sounds 1 and 2 normal, regular rhythm, normal rate, no pedal edema Lungs: Clear to auscultation bilaterally, adequate breath sounds bilaterally, no rhonchi or crackles. Abdomen: Soft, nondistended, nontender, normal bowel sounds. Extremities: No tenderness, no deformity Skin: Normal skin turgor, no rash, no nodules or ulcers. Neuro: No focal motor deficit. Normal speech. Psychiatry: Calm during my examination, Oropharyngeal dysphagia Alzheimer's dementia Spouse stated patient is ambulatory. He has been refusing to eat. Spinal denies any aspiration in the [facility]ci. Barium swallow study result reviewed. Speech therapy input appreciated Mechanical soft diet and thin liquids recommended. Monitor food intake/calorie count Spouse is okay with PEG tube if needed. Dementia with behavioral abnormality Patient is on resperdal in the fci. Will continue risperdal. Haldol IV as needed for delirium related agitation. Iron deficiency anemia Continue oral iron supplementation from the fci. No gross evidence of GI bleed. Functional constipation Start stool softeners and laxatives. DVT prophylaxis: Lovenox.
[2023-09-01] MEDS: RISPERIDONE 1 MG TABLET PO SCH (21:19)
[2023-09-01] MEDS: MEMANTINE HCL 10 MG TABLET PO SCH (21:19)
[2023-09-01] MEDS: TRAZODONE 50 MG TABLET PO SCH (21:19)
[2023-09-01] MEDS: DOCUSATE NA 100 MG CAP PO SCH (21:19)
[2023-09-02] MEDS: ENOXAPARIN 40 MG/0.4 ML SQ SCH (09:18)
[2023-09-02] MEDS: MAGNESIUM HYDROXIDE 8% 30 ML PO SCH (09:19)
[2023-09-02] MEDS: FERROUS SULFATE 325 MG TAB PO SCH (09:19)
[2023-09-02] MEDS: FOLIC ACID 1 MG TABLET PO SCH (09:19)
--- NOTE | 2023-09-02 11:56 | EKG ---
Test Date: 2023-08-31 Test Time: 18:12:58 Agile Business Analyst: KHALIDA MEASUREMENT RESULTS: Intervals: Rate: 79 NV: 120 QRSD: 88 QT: 396 QTc: 454 [place]: P: 51 NV: 120 QRS: 49 T: 60 INTERPRETIVE STATEMENTS: Normal sinus rhythm with sinus arrhythmia Increased R/S ratio in V1, consider early transition or posterior infarct Abnormal ECG Compared to ECG 08/23/2023 09:37:13 Myocardial infarct finding now present Electronically Signed On 09-02-23 11:50:22 CDT by Сергей Araujo
[2023-09-02] MEDS: ENSURE ENLIVE 237 ML CAN PO SCH (14:39)
--- NOTE | 2023-09-02 16:00 | P.PN ---
Subjective Date of Service: 09/02/23 Chief Complaint: Dysphagia Patient slept half of the day. He is on trazodone in the half-way which was resumed last night and it appears patient's drowsiness is related to the trazodone. Spouse reports patient has been eating when she feeds him. Physical Examination - Vital Signs Temperature: 98 F Blood Pressure: 137/84 Pulse: 50 Respirations: 15 Pulse Ox (%): 100 - Physical Exam General: In no apparent distress, Other (Awake, psychomotor retardation.) Assessment And Plan - Current Problems (Diagnosis) (1) Functional constipation Current Visit: Yes Status: Acute (2) Alzheimer's dementia with behavioral disturbance Current Visit: Yes Status: Acute (3) Microcytic hypochromic anemia Current Visit: Yes Status: Acute - Plan Physical examination General: Awake, psychomotor retardation, NAD, Neck: Supple, no elevated JVD Heart: Heart sounds 1 and 2 normal, regular rhythm, normal rate, no pedal edema Lungs: Clear to auscultation bilaterally, adequate breath sounds bilaterally, no rhonchi or crackles. Abdomen: Soft, nondistended, nontender, normal bowel sounds. Extremities: No tenderness, no deformity Skin: Normal skin turgor, no rash, no nodules or ulcers. Neuro: No focal motor deficit. Normal speech. Psychiatry: No agitation today. Assessment and plan Oropharyngeal dysphagia Alzheimer's dementia Spouse stated patient is ambulatory. It appears patient has been too drowsy to eat tenderness in the half-way No reported aspiration. Barium swallow study result reviewed. Speech therapy input appreciated Mechanical soft diet and thin liquids recommended. Decrease trazodone dose so patient can be awake enough during the day to eat. Feed with assistance. Monitor food intake/calorie count We could avoid PEG tube placement if patient's oral intake improve with these measures. Dementia with behavioral abnormality Patient is on resperdal in the half-way. Will continue risperdal. Haldol IV as needed for delirium related agitation. Iron deficiency anemia Continue oral iron supplementation from the half-way. No gross evidence of GI bleed. Functional constipation Stool softeners and laxatives. DVT prophylaxis: Lovenox.
[2023-09-02] MEDS: TRAZODONE 50 MG TABLET PO SCH (21:00)
[2023-09-03 03:22] LABS: Absolute Eosinophils 0.1 K/uL (0-0.5); Absolute Lymphocytes (CBC) 1.2 K/uL (0.7-4.9); Absolute Monocytes 0.4 K/uL (0.1-1.3); Absolute Neutrophil 4.1 K/uL (1.8-8.0); Basophils % 0.9 % (0-1.3); Eosinophils % 1.3 % (0-4.4); Hematocrit 30.7 % (39.6-49.0); Lymphocytes % 21.3 % (15.3-44.8); MCH 23.6 pg (27.0-35.0); MCHC 32.6 g/dL (32.0-36.0); MCV 72.4 fL (80-100); MPV 9.2 fL (7.6-11.3); Monocytes % 6.1 % (3.3-12.3); Neutrophils % 70.4 % (41.7-73.7); Platelets 209 thou/uL (152-406); RBC Red Blood Cell Count 4.25 M/uL (4.33-5.43); Red Cell Distribution Width 16.5 % (12.1-15.2)
[2023-09-03 03:39] LABS: Anion Gap 9.6 mEq/L (5.0-15.0); Potassium 3.6 mEq/L (3.5-5.1)
--- NOTE | 2023-09-03 13:31 | P.PN ---
Subjective Date of Service: 09/03/23 Chief Complaint: Dysphagia Pt is resting comfortably in bed. He was sleeping but arousable. No complaints. Review of Systems General: Unremarkable Eyes: Unremarkable ENT: Unremarkable Respiratory: Unremarkable Cardiovascular: Unremarkable Gastrointestinal: Unremarkable Genitourinary: Unremarkable Musculoskeletal: Unremarkable Integumentary: Unremarkable Neurological: Unremarkable Lymphatics: Unremarkable Physical Examination - Vital Signs Temperature: 97.2 F Blood Pressure: 140/84 Pulse: 50 Respirations: 18 Pulse Ox (%): 99 - Physical Exam General: Alert, In no apparent distress, Oriented x3 HEENT: Atraumatic, Normocephalic Neck: Supple, 2+ carotid pulse no bruit Respiratory: Clear to auscultation bilaterally, Normal air movement Cardiovascular: No edema, Normal pulses, Regular rate/rhythm, Normal S1 S2 Capillary refill: <2 Seconds Gastrointestinal: Normal bowel sounds, Soft and benign, Non-distended Musculoskeletal: No clubbing, No swelling Integumentary: No rashes, No breakdown Neurological: Normal strength at 5/5 x4 extr, Normal tone, Sensation intact Lymphatics: No axilla or inguinal lymphadenopathy Assessment And Plan - Plan Oropharyngeal dysphagia: Speech therapist evaluated pt. Will continue mechanical soft diet with thin liquid. Will reduce dose of trazodone in order to make pt more awake during the day to eat. This will prevent him from getting PEG tube placement. Alzheimer's dementia with abnormal behavior: will continue risperdal and supportive care. Will continue prn iv Haldol delirium related agitation. Iron deficiency anemia: Continue oral iron supplementation. Hgb is stable at 10. No gross evidence of GI bleed. Functional constipation: Continue stool softeners and laxatives. DVT prophylaxis: Lovenox. Code: full
[2023-09-03 23:37] VITALS: BMI 19.5
[2023-09-04 04:09] LABS: Absolute Eosinophils 0.1 K/uL (0-0.5); Absolute Lymphocytes (CBC) 1.1 K/uL (0.7-4.9); Absolute Monocytes 0.4 K/uL (0.1-1.3); Absolute Neutrophil 4.3 K/uL (1.8-8.0); Basophils % 0.7 % (0-1.3); Hematocrit 32.7 % (39.6-49.0); Hemoglobin 10.6 g/dL (13.6-17.9); Lymphocytes % 18.3 % (15.3-44.8); MCH 23.3 pg (27.0-35.0); MCHC 32.5 g/dL (32.0-36.0); MCV 71.8 fL (80-100); Monocytes % 6.1 % (3.3-12.3); Neutrophils % 73.9 % (41.7-73.7); Platelets 189 thou/uL (152-406); RBC Red Blood Cell Count 4.55 M/uL (4.33-5.43); Red Cell Distribution Width 16.3 % (12.1-15.2)
[2023-09-04 04:27] LABS: Anion Gap 9.4 mEq/L (5.0-15.0); Potassium 3.4 mEq/L (3.5-5.1)
[2023-09-04] MEDS: POTASSIUM CL SA 10 MEQ TAB PO ONE (11:42)
--- NOTE | 2023-09-04 11:44 | P.PN ---
Subjective Date of Service: 09/04/23 Chief Complaint: Dysphagia Pt is resting comfortably in bed. He was sleeping whan I saw him. Pt is 3.4. No other complaints. Review of Systems is unable to be obtained Physical Examination - Vital Signs Temperature: 97.8 F Blood Pressure: 106/67 Pulse: 66 Respirations: 17 Pulse Ox (%): 98 - Physical Exam General: Alert, In no apparent distress, Oriented x3 HEENT: Atraumatic, Normocephalic, PERRLA Neck: Supple, 2+ carotid pulse no bruit Respiratory: Clear to auscultation bilaterally, Normal air movement Cardiovascular: No edema, Normal pulses, Regular rate/rhythm, Normal S1 S2 Capillary refill: <2 Seconds Gastrointestinal: Normal bowel sounds, Soft and benign, Non-distended Musculoskeletal: No clubbing, No swelling Integumentary: No rashes, No breakdown Neurological: Normal strength at 5/5 x4 extr, Normal tone, Sensation intact Lymphatics: No axilla or inguinal lymphadenopathy Assessment And Plan - Plan Oropharyngeal dysphagia: Speech therapist evaluated pt. Will continue mechanical soft diet with thin liquid. Will reduce dose of trazodone in order to make pt more awake during the day to eat. This will prevent him from getting PEG tube placement. Alzheimer's dementia with abnormal behavior: will continue risperdal and supportive care. Will continue prn iv Haldol delirium related agitation. Hypokalemia: K is 3.4. Will replete and monitor. Htn: Improved. Will monitor Iron deficiency anemia: Continue oral iron supplementation. Hgb is stable at 10. No gross evidence of GI bleed. Functional constipation: Continue stool softeners and laxatives. DVT prophylaxis: Lovenox. Code: full
[2023-09-05 07:03] LABS: Absolute Eosinophils 0.1 K/uL (0-0.5); Absolute Lymphocytes (CBC) 1.1 K/uL (0.7-4.9); Absolute Monocytes 0.4 K/uL (0.1-1.3); Absolute Neutrophil 4.9 K/uL (1.8-8.0); Basophils % 0.6 % (0-1.3); Eosinophils % 1.6 % (0-4.4); Hematocrit 31.2 % (39.6-49.0); Lymphocytes % 16.6 % (15.3-44.8); MCH 23.2 pg (27.0-35.0); MCV 72.6 fL (80-100); MPV 10.1 fL (7.6-11.3); Monocytes % 5.8 % (3.3-12.3); Neutrophils % 75.4 % (41.7-73.7); Platelets 180 thou/uL (152-406); Red Cell Distribution Width 16.6 % (12.1-15.2)
[2023-09-05 07:15] LABS: Anion Gap 8.2 mEq/L (5.0-15.0); Potassium 3.2 mEq/L (3.5-5.1)
[2023-09-05] MEDS: POTASSIUM CL 40 MEQ in NA CHLORIDE 0.9% 500 ML IV SCH (09:57)
--- NOTE | 2023-09-05 12:04 | P.PN ---
Subjective Date of Service: 09/05/23 Chief Complaint: Dysphagia Pt is resting comfortably in bed. He was sleeping when I saw him. His Abd is distended and pt has not been very awake to eat. Will f/u KUB. K is 3.2. No other complaints. Review of Systems is unable to be obtained Physical Examination - Vital Signs Temperature: 97.3 F Blood Pressure: 115/75 Pulse: 59 Respirations: 15 Pulse Ox (%): 97 - Physical Exam General: Demented HEENT: Atraumatic, Normocephalic Neck: Supple, 2+ carotid pulse no bruit Respiratory: Clear to auscultation bilaterally, Normal air movement, Diminished Cardiovascular: No edema, Normal pulses, Regular rate/rhythm, Normal S1 S2 Capillary refill: <2 Seconds Gastrointestinal: Normal bowel sounds, Soft and benign, Non-distended, Distended Musculoskeletal: No clubbing, No swelling, No contractures Neurological: Normal gait, Normal tone, Sensation intact Lymphatics: No axilla or inguinal lymphadenopathy Assessment And Plan - Plan Oropharyngeal dysphagia: Speech therapist evaluated pt. Will continue mechanical soft diet with thin liquid. Will reduce dose of trazodone in order to make pt more awake during the day to eat. This will prevent him from getting PEG tube placement. Distended Abd: Will f/u KUB Alzheimer's dementia with abnormal behavior: will continue risperdal and supportive care. Will continue prn iv Haldol delirium related agitation. Hypokalemia: K is 3.2<- 3.4. Will replete and monitor. Anemia: Hgb is 10. Will monitor H/H. Htn: Improved. Will monitor Iron deficiency anemia: Continue oral iron supplementation. Hgb is stable at 10. No gross evidence of GI bleed. Functional constipation: Continue stool softeners and laxatives. DVT prophylaxis: Lovenox. Code: full
--- NOTE | 2023-09-05 13:05 | RAD REPORT ---
EXAM DESCRIPTION: RAD - Abdomen 1 View (KUB) - 09/05/2023 12:51 pm CLINICAL HISTORY: Abdomen pain FINDINGS: Overall less stool throughout the colon compare to August 24 2023. Large amount stool wi thin the right colon. There appears to be marked dilatation of colon within lower abdomen/upper pelvis midline measuring 15 centimeters. This may represent sigmoid colon. Mild to moderate dilatation of additional portions of the colon.
[2023-09-05] MEDS: LACTULOSE 20 GM/30 ML UCUP PO ONE (16:46)
[2023-09-06] MEDS ORDERED: LACTULOSE 20 GM/30 ML UCUP PO PRN (10:18)
--- NOTE | 2023-09-06 10:19 | P.PN ---
Subjective Date of Service: 09/06/23 Chief Complaint: Dysphagia Admitted for dysphagia, speech to eval mechanical soft diet, poor appetite, not eating Seen by physical therapy today, mod to max max assist, very unsteady gait - Physical Exam General: Demented HEENT: Atraumatic, Normocephalic Neck: Supple, 2+ carotid pulse no bruit Respiratory: Clear to auscultation bilaterally, Normal air movement, Diminished Cardiovascular: No edema, Normal pulses, Regular rate/rhythm, Normal S1 S2 Capillary refill: <2 Seconds Gastrointestinal: Normal bowel sounds, Soft and benign, Non-distended, Distended Musculoskeletal: No clubbing, No swelling, No contractures Neurological: Normal gait, Normal tone, Sensation intact Lymphatics: No axilla or inguinal lymphadenopathy <Mary East - Last Filed: 09/06/23 16:23> Date of Service: 09/06/23 <Renae Nevarez - Last Filed: 09/11/23 10:11> Review of Systems Per HPI <Mary East - Last Filed: 09/06/23 16:23> Physical Examination - Vital Signs Temperature: 98.0 F Blood Pressure: 133/87 Pulse: 73 Respirations: 12 Pulse Ox (%): 99 <Mary East - Last Filed: 09/06/23 16:23> Assessment And Plan - Plan Assessment plan Oropharyngeal dysphagia: Speech therapist evaluated pt. Will continue mechanical soft diet with thin l iquid. Will reduce dose of trazodone in order to make pt more awake during the day to eat. This will prevent him from getting PEG tube placement. For nutrition Minced diet Aspiration precaution Functional constipation Distended Abd: 4/ KUB-FINDINGS: Overall less stool throughout the colon compare to August 24 2023. Large amount stool within the right colon. There appears to be marked dilatation of colon within lower abdomen/upper pelvis midline measuring 15 centimeters. This may represent sigmoid colon. Mild to moderate dilatation of additional portions of the colon Continue stool softeners and laxatives. Alzheimer's dementia with abnormal behavior: will continue risperdal and supportive care. Will continue prn iv Haldol delirium related agitation. Resume home [place] Hypokalemia: K is 3.2<- 3.4. Will replete and monitor. Iron deficiency anemia: Continue oral iron supplementation. Hgb is stable at 10. No gross evidence of GI bleed. Hgb is 10. Will monitor H/H. Htn: Improved. Will monitor Diet cardiac DVT prophylaxis: Lovenox. Code: full Disposition [facility] nursing [facility] Discharge Plan: Senior Living Critical Care: No Time Spent Managing PTS Care (In Minutes): 35 <Mary East - Last Filed: 09/06/23 16:23> - Current Problems (Diagnosis) (1) Alzheimer's dementia with behavioral disturbance Status: Acute (2) Nonverbal Status: Acute (3) Constipation Status: Acute (4) Microcytic hypochromic anemia Status: Acute <Renae Nevarez - Last Filed: 09/11/23 10:11> Date of Service: 09/06/23 Patient chart was reviewed and patient was seen and examined. Agree with the assessment and plan. Patient presented with diminished appetite. Patient possibly has Parkinson's features. Will start him on medication for movement disorder. Plan of care was discussed with ROB. Most of the MDM was done by myself and plan of care was discussed with ROB as well as the patient. <Renae Nevarez - Last Filed: 09/11/23 10:11>
[2023-09-07 04:43] LABS: Absolute Eosinophils 0.1 K/uL (0-0.5); Absolute Lymphocytes (CBC) 1.3 K/uL (0.7-4.9); Absolute Monocytes 0.4 K/uL (0.1-1.3); Absolute Neutrophil 5.7 K/uL (1.8-8.0); Basophils % 0.6 % (0-1.3); Eosinophils % 1.8 % (0-4.4); Hematocrit 29.1 % (39.6-49.0); Hemoglobin 9.4 g/dL (13.6-17.9); Lymphocytes % 17.4 % (15.3-44.8); MCH 23.4 pg (27.0-35.0); MCHC 32.3 g/dL (32.0-36.0); MCV 72.5 fL (80-100); MPV 9.9 fL (7.6-11.3); Monocytes % 5.4 % (3.3-12.3); Neutrophils % 74.8 % (41.7-73.7); Platelets 188 thou/uL (152-406); RBC Red Blood Cell Count 4.01 M/uL (4.33-5.43); Red Cell Distribution Width 16.6 % (12.1-15.2)
[2023-09-07 05:08] LABS: Anion Gap 8.3 mEq/L (5.0-15.0); Potassium 3.3 mEq/L (3.5-5.1)
--- NOTE | 2023-09-07 17:26 | P.PN ---
Subjective Date of Service: 09/07/23 Chief Complaint: Dysphagia Admitted for dysphagia, speech to eval mechanical soft diet, poor appetite, not eating-reported drinking Ensure shake today. Confused, dementia Seen by physical therapy today, mod to max max assist, very unsteady gait at bedside, - Physical Exam General: Demented HEENT: Atraumatic, Normocephalic Neck: Supple, 2+ carotid pulse no bruit Respiratory: Clear to auscultation bilaterally, Normal air movement, Diminished Cardiovascular: No edema, Normal pulses, Regular rate/rhythm, Normal S1 S2 Capillary refill: <2 Seconds Gastrointestinal: Normal bowel sounds, Soft and benign, Non-distended, Distended Musculoskeletal: No clubbing, No swelling, No contractures Neurological: Normal gait, Normal tone, Sensation intact Lymphatics: No axilla or inguinal lymphadenopathy <Mary East - Last Filed: 09/07/23 17:25> Date of Service: 09/07/23 <Renae Neavrez - Last Filed: 09/11/23 10:12> Review of Systems per HPI <Mary East - Last Filed: 09/07/23 17:25> Physical Examination - Vital Signs Temperature: 97.6 F Blood Pressure: 135/83 Pulse: 61 Respirations: 16 Pulse Ox (%): 94 <Mary East - Last Filed: 09/07/23 17:25> Assessment And Plan - Plan Assessment plan Oropharyngeal dysphagia: Speech therapist evaluated pt. Will continue mechanical soft diet with thin liquid. Will reduce dose of trazodone in order to make pt more awake during the day to eat. This will prevent him from getting PEG tube placement. For nutrition Minced diet-Ensure shakes for additional supplementation, calorie count per dietary Aspiration precaution Functional constipation Distended Abd: 09/04 KUB-FINDINGS: Overall less stool throughout the colon compare to August 24 2023. Large amount stool within the right colon. There appears to be marked dilatation of colon within lower abdomen/upper pelvis midline measuring 15 centimeters. This may represent sigmoid colon. Mild to moderate dilatation of additional portions of the colon Continue stool softeners and laxatives. Alzheimer's dementia with abnormal behavior: will continue risperdal and supportive care. Will continue prn iv Haldol delirium related agitation. Resume home Namenda Hypokalemia: K is 3.2<- 3.4. Will replete and monitor. Iron deficiency anemia: Continue oral iron supplementation. Hgb is stable at 10. No gross evidence of GI bleed. Hgb is 10. Will monitor H/H. Htn: Improved. Will monitor Diet cardiac DVT prophylaxis: Lovenox. Code: full Disposition [facility] nursing facility Discharge Plan: [facility] Critical Care: No Time Spent Managing PTS Care (In Minutes): 35 <Mary East - Last Filed: 09/07/23 17:25> - Current Problems (Diagnosis) (1) Alzheimer's dementia with behavioral disturbance Status: Acute (2) Nonverbal Status: Acute (3) Constipation Status: Acute (4) Microcytic hypochromic anemia Status: Acute <Renae Nevarez - Last Filed: 09/11/23 10:12> Date of Service: 09/07/23 Patient is doing well. Calorie counts are improving. Patient was started on carbo levodopa. Patient responded well. Chart has been reviewed. Events have been noted. Agree with the ROB assessment and plan. Patient possibly has Parkinson's features. Will start him on medication for movement disorder. Plan of care was discussed with ROB. Most of the MDM was done by myself and plan of care was discussed with ROB as well as the patient and family. <Renae Nevarez - Last Filed: 09/11/23 10:12>
--- NOTE | 2023-09-08 07:52 | P.PN ---
Subjective Date of Service: 09/09/23 Chief Complaint: Dysphagia Admitted for dysphagia, speech to eval mechanical soft diet, poor appetite, not eating-reported drinking Ensure shake today. Confused, dementia Seen by physical therapy today, mod to max max assist, very unsteady gait at bedside, - Physical Exam General: Demented HEENT: Atraumatic, Normocephalic Neck: Supple, 2+ carotid pulse no bruit Respiratory: Clear to auscultation bilaterally, Normal air movement, Diminished Cardiovascular: No edema, Normal pulses, Regular rate/rhythm, Normal S1 S2 Capillary refill: <2 Seconds Gastrointestinal: Normal bowel sounds, Soft and benign, Non-distended, Distended Musculoskeletal: No clubbing, No swelling, No contractures Neurological: Normal gait, Normal tone, Sensation intact Lymphatics: No axilla or inguinal lymphadenopathy <Mary East - Last Filed: 09/09/23 09:05> Date of Service: 09/08/23 <Renae Nevarez - Last Filed: 09/11/23 10:13> Review of Systems per HPI <Mary East - Last Filed: 09/09/23 09:05> Physical Examination - Vital Signs Temperature: 98.7 F Blood Pressure: 140/78 Pulse: 71 Respirations: 16 Pulse Ox (%): 94 <Mary East - Last Filed: 09/09/23 09:05> Assessment And Plan - Plan Assessment plan Oropharyngeal dysphagia: Speech therapist evaluated pt. Will continue mechanical soft diet with thin liquid. Will reduce dose of trazodone in order to make pt more awake during the day to eat. This will prevent him from getting PEG tube placement. For nutrition Minced diet-Ensure shakes for additional supplementation, calorie count per dietary Aspiration precaution Functional constipation Distended Abd: 09/04 KUB-FINDINGS: Overall less stool throughout the colon compare to August 24 2023. Large amount stool within the right colon. There appears to be marked dilatation of colon within lower abdomen/upper pelvis midline measuring 15 centimeters. This may represent sigmoid colon. Mild to moderate dilatation of additional portions of the colon Continue stool softeners and laxatives. Alzheimer's dementia with abnormal behavior: will continue risperdal and supportive care. Will continue prn iv Haldol delirium related agitation. Resume home Namenda Hypokalemia: K is 3.2<- 3.4. Will replete and monitor. Iron deficiency anemia: Continue oral iron supplementation. Hgb is stable at 10. No gross evidence of GI bleed. Hgb is 10. Will monitor H/H. Htn: Improved. Will monitor Diet cardiac DVT prophylaxis: Lovenox. Code: full Disposition [facility] nursing facility Discharge Plan: [place]way - Code Status/Comfort Care Code Status: Full Code Critical Care: No Time Spent Managing PTS Care (In Minutes): 35 <Mary East - Last Filed: 09/09/23 09:05> - Current Problems (Diagnosis) (1) Alzheimer's dementia with behavioral disturbance Status: Acute (2) Nonverbal Status: Acute (3) Constipation Status: Acute (4) Microcytic hypochromic anemia Status: Acute <Renae Nevarez - Last Filed: 09/11/23 10:13> Date of Service: 09/08/23 Patient was started on carbo levodopa. Will continue with daily. Patient responded well. Chart has been reviewed. Events have been noted. Agree with the ROB assessment and plan. Patient possibly has Parkinson's features. Will start him on medication for movement disorder. Plan of care was discussed with ROB. Most of the MDM was done by myself and plan of care was discussed with ROB as well as the patient and family. <Renae Nevarez - Last Filed: 09/11/23 10:13>
[2023-09-08 10:21] LABS: Anion Gap 7.2 mEq/L (5.0-15.0); Potassium 3.2 mEq/L (3.5-5.1)
[2023-09-08] MEDS: ACETAMINOPHEN 500 MG TAB PO PRN (17:46)
--- NOTE | 2023-09-09 09:06 | P.PN ---
Subjective Date of Service: 09/11/23 Chief Complaint: Dysphagia Admitted for dysphagia, speech to eval mechanical soft diet, poor appetite, not eating-reported drinking Ensure shake today. Confused, dementia Seen by physical therapy today, mod to max max assist, very unsteady gait at bedside, - Physical Exam General: Demented HEENT: Atraumatic, Normocephalic Neck: Supple, 2+ carotid pulse no bruit Respiratory: Clear to auscultation bilaterally, Normal air movement, Diminished Cardiovascular: No edema, Normal pulses, Regular rate/rhythm, Normal S1 S2 Capillary refill: <2 Seconds Gastrointestinal: Normal bowel sounds, Soft and benign, Non-distended, Distended Musculoskeletal: No clubbing, No swelling, No contractures Neurological: Normal gait, Normal tone, Sensation intact Lymphatics: No axilla or inguinal lymphadenopathy <Mary East - Last Filed: 09/11/23 09:54> Date of Service: 09/09/23 <Renae Nevarez - Last Filed: 09/11/23 10:15> Physical Examination - Vital Signs Temperature: 98.7 F Blood Pressure: 140/78 Pulse: 71 Respirations: 16 Pulse Ox (%): 94 <Mary East - Last Filed: 09/11/23 09:54> Assessment And Plan - Plan Assessment plan Oropharyngeal dysphagia: Speech therapist evaluated pt. Will continue mechanical soft diet with thin liquid. Will reduce dose of trazodone in order to make pt more awake during the day to eat. This will prevent him from getting PEG tube placement. For nutrition Minced diet-Ensure shakes for additional supplementation, calorie count per dietary Aspiration precaution Functional constipation Distended Abd: 09/04 KUB-FINDINGS: Overall less stool throughout the colon compare to August 24 2023. Large amount stool within the right colon. There appears to be marked dilatation of colon within lower abdomen/upper pelvis midline measuring 15 centimeters. This may represent sigmoid colon. Mild to moderate dilatation of additional portions of the colon Continue stool softeners and laxatives. Alzheimer's dementia with abnormal behavior: will continue risperdal and supportive care. Will continue prn iv Haldol delirium related agitation. Resume home Namenda Hypokalemia: K is 3.2<- 3.4. Will replete and monitor. Iron deficiency anemia: Continue oral iron supplementation. Hgb is stable at 10. No gross evidence of GI bleed. Hgb is 10. Will monitor H/H. Htn: Improved. Will monitor Diet cardiac DVT prophylaxis: Lovenox. Code: full Disposition [facility] nursing [facility] <Mary East - Last Filed: 09/11/23 09:54> - Current Problems (Diagnosis) (1) Alzheimer's dementia with behavioral disturbance Status: Acute (2) Nonverbal Status: Acute (3) Constipation Status: Acute (4) Microcytic hypochromic anemia Status: Acute <Renae Nevarez - Last Filed: 09/11/23 10:15> Date of Service: 09/09/23 Patient chart was reviewed and patient was seen and examined. ROB assessment and plan has been reviewed and agreeable. Most of the MDM was done by myself and plan of care was discussed with ROB as well as the patient. Plan to discharge back to [facility] in the AM. Anticipate DC in AM. <Renae Nevarez - Last Filed: 09/11/23 10:15>
[2023-09-09] MEDS: POTASSIUM 25 MEQ EFFERV TAB PO ONE ×2 (09:45→21:49)
[2023-09-09] MEDS: CARBIDOPA/LEVODOPA 25/250 TAB PO ONE (13:53)
[2023-09-09] MEDS: POTASSIUM 25 MEQ EFFERV TAB ONE (21:36)
--- NOTE | 2023-09-10 08:00 | P.PN ---
Subjective Date of Service: 09/10/23 Chief Complaint: Dysphagia Admitted for dysphagia, speech to eval mechanical soft diet, poor appetite, not eating-reported drinking Ensure shake today. Confused, dementia Seen by physical therapy today, mod to max max assist, very unsteady gait - Physical Exam General: Demented HEENT: Atraumatic, Normocephalic Neck: Supple, 2+ carotid pulse no bruit Respiratory: Clear to auscultation bilaterally, Normal air movement, Diminished Cardiovascular: No edema, Normal pulses, Regular rate/rhythm, Normal S1 S2 Capillary refill: <2 Seconds Gastrointestinal: Normal bowel sounds, Soft and benign, Non-distended, Distended Musculoskeletal: No clubbing, No swelling, No contractures Neurological: Normal gait, Normal tone, Sensation intact Lymphatics: No axilla or inguinal lymphadenopathy Review of Systems Per HPI Physical Examination - Vital Signs Temperature: 98.2 F Blood Pressure: 135/73 Pulse: 77 Respirations: 18 Pulse Ox (%): 99 Assessment And Plan - Plan Assessment plan Oropharyngeal dysphagia: Speech therapist evaluated pt. Will continue mechanical soft diet with thin liquid. Will reduce dose of trazodone in order to make pt more awake during the day to eat. This will prevent him from getting PEG tube placement. For nutrition Minced diet-Ensure shakes for additional supplementation, calorie count per dietary Aspiration precaution Functional constipation Distended Abd: 09/04 KUB-FINDINGS: Overall less stool throughout the colon compare to August 24 2023. Large amount stool within the right colon. There appears to be marked dilatation of colon within lower abdomen/upper pelvis midline measuring 15 centimeters. This may represent sigmoid colon. Mild to moderate dilatation of additional portions of the colon Continue stool softeners and laxatives. Alzheimer's dementia with abnormal behavior: will continue risperdal and supportive care. Will continue prn iv Haldol delirium related agitation. Resume home Namenda Hypokalemia: K is 3.2<- 3.4. Will replete and monitor. Iron deficiency anemia: Continue oral iron supplementation. Hgb is stable at 10. No gross evidence of GI bleed. Hgb is 10. Will monitor H/H. Htn: Improved. Will monitor Diet cardiac DVT prophylaxis: Lovenox. Code: full Disposition [facility] nursing [facility] Discharge Plan: Jail - Code Status/Comfort Care Code Status: Full Code Critical Care: No Time Spent Managing PTS Care (In Minutes): 35
[2023-09-10 11:49] VITALS: O2SAT 96
[2023-09-10] MEDS: CARBIDOPA/LEVODOPA 25/250 TAB PO ONE (12:20)
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
[2023-09-11 10:33] VITALS: BP 140/78; TEMP 98.7
== END 2023-09-10 17:56 | DRG 392 ==
LOC: ER 18:10 → ERHOLD 21:56 → 4TH 22:34
PROVIDERS: ADMIT Hospitalist; ATTEND Hospitalist
DX: R13.12 Dysphagia, oropharyngeal phase (principal); R47.01 Aphasia; E44.0 Moderate protein-calorie malnutrition; Z68.1 Body mass index [BMI] 19.9 or less, adult; F02.818 Dementia in other diseases classified elsewhere, unspecified severity, with other behavioral disturbance; F02.811 Dementia in other diseases classified elsewhere, unspecified severity, with agitation; F05 Delirium due to known physiological condition; E86.0 Dehydration; G30.9 Alzheimer's disease, unspecified; E11.9 Type 2 diabetes mellitus without complications; E87.6 Hypokalemia; G20.A1 Parkinson's disease without dyskinesia, without mention of fluctuations; E78.5 Hyperlipidemia, unspecified; D50.9 Iron deficiency anemia, unspecified; I10 Essential (primary) hypertension; K59.04 Chronic idiopathic constipation; I25.10 Atherosclerotic heart disease of native coronary artery without angina pectoris; Z88.6 Allergy status to analgesic agent; Z87.891 Personal history of nicotine dependence
CPT/HCPCS: 36415; 70450; 71045; 71250; 72125; 74018; 74230; 80048; 80053; 80061; 80076; 81001; 82140; 82607; 82947; 83540; 83690; 83735; 83880; 84132; 84439; 84443; 84484; 85025; 85044; 85610; 85730; 86140; 92611; 93005; 96361; 96374; 96375; 97116; 97161; 97530; 99285; J1630; J1650; J1720; J2930; J3480; J7030; J7040

== ENCOUNTER 2023-09-19 15:02 | Emergency (ER) | payer OTHER ==
--- NOTE | 2023-09-19 15:35 | RAD REPORT ---
EXAM DESCRIPTION: CT - Head Brain Wo Cont - 09/19/2023 3:16 pm CLINICAL HISTORY: TRAUMA COMPARISON: Head Brain Wo Cont dated 08/23/2023; Head Brain Wo Cont dated 07/10/2021 TECHNIQUE: Noncontrast head CT images were obtained without IV contrast. Multiplanar reformats were generated and reviewed. All CT scans are performed using dose optimization technique as appropriate and may include automated exposure control or mA/KV adjustment according to patient size. FINDINGS: No intracranial hemorrhage, mass, or edema. Midline structures are unremarkable. Stable ventricular caliber with mild diffuse parenchymal volume loss. Woodson-white matter differentiation is preserved, without evidence of acute infarct. No abnormal extra- axial fluid collections. Mastoid air cells and visualized portions of the paranasal sinuses are clear. No acute bony findings. Left frontal scalp swelling/small hematoma. IMPRESSION: No evidence of an acute intracranial process. Left frontal scalp swelling and small hematoma.
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
--- NOTE | 2023-09-19 15:39 | EDPHYS ---
Physician Documentation [facility] Name: Jonathan Mark Age: 67 yrs Sex: Male : 1955 Arrival Date: 09/19/2023 Time: 15:02 Bed 6 Private MD: ED Physician Jacky Rossi HPI: 09/18 15:06 This 67 yrs old Black Male presents to ER via Unassigned with complaints of fall. sb4 15:21 longterm sent patient here after sustaining mechanical fall. noted swelling to the sb4 left forehead. no loc, no blood thinners. patient has advanced dementia, is non verbal, cannot provide much history. has no complaints at this time. is at his baseline mental status per ME. Historical: - Allergies: 15:11 Aspirin; ll1 - PMHx: 15:11 Alzheimer's disease; Alzheimer's disease; Anemia; Anxiety; Dementia; depressive ll1 disorder; Diabetes - NIDDM; diabetes mellitus; Hyperlipidemia; Hypertension; insomnia; - Immunization history:: Adult Immunizations up to date. - Infectious Disease History:: Denies. - Social history:: Smoking status: Patient denies any tobacco usage or history of. ROS: 15:21 Unable to obtain ROS due to baseline dementia, sb4 Exam: 15:21 Cardiovascular: Regular rate and rhythm with a normal S1 and S2. Respiratory: Lungs sb4 have equal breath sounds bilaterally, clear to auscultation and percussion. No rales, rhonchi or wheezes noted. No increased work of breathing, no retractions or nasal flaring. Abdomen/GI: Soft, non-tender, no distension. 15:21 Constitutional: The patient appears in no acute distress, alert, awake, 15:21 Head/face: Noted is hematoma, that is moderate, of the left side of forehead, 15:21 Eyes: Periorbital structures: appear normal, Pupils: equal, round, and reactive to light and accomodation, 15:21 Neuro: Motor: moves all fours, Sensation: no obvious gross deficits, Abnormal movements: there are no abnormal movements, nonverbal, Vital Signs: 15:22 BP 138 / 79; Pulse 92; Resp 18; Pulse Ox 99% on R/A; ld1 15:22 Temp 97.6(TE); Weight 88.45 kg; Height 5 ft. 11 in. ; ld1 16:19 BP 152 / 90; Pulse 88; Resp 18; Pulse Ox 100% on R/A; ld1 15:22 Body Mass Index 27.20 (88.45 kg, 180.34 cm) ld1 MDM: 15:04 Patient medically screened. sb4 15:24 Differential diagnosis: superficial hematoma, subdural hematoma, epidural hematoma, sb4 contusion. 15:37 Data reviewed: vital signs, nurses notes, radiologic studies, and as a result, I will sb4 discharge patient. Counseling: I had a detailed discussion with the patient and/or guardian regarding the historical points, exam findings, and any diagnostic results supporting the discharge/admit diagnosis, radiology results, to return to the emergency department if symptoms worsen or persist or if there are any questions or concerns that arise at home. 09/18 15:04 Order name: Head Brain Wo Cont CT; Complete Time: 15:37 sb4 Administered Medications: No medications were administered Disposition: 15:50 Chart complete. sb4 17:59 Co-signature as Attending Physician, Jacky Rossi MD I reviewed the patient's care rn provided by the Advanced Practice Provider and agree with the diagnosis and treatment plan. Disposition Summary: 09/19/23 15:38 Discharge Ordered Notes: Location: Home sb4 Problem: new sb4 Symptoms: are unchanged sb4 Condition: Stable sb4 Diagnosis - superficial hematoma of forehead s/p fall sb4 Followup: sb4 - With: Emergency Department - When: As needed - Reason: Trouble breathing, Worsening of condition Discharge Instructions: - Discharge Summary Sheet sb4 - Hematoma, [id number] sb4 Forms: - Thank You Letter sb4 - Patient Portal Instructions sb4 - Leadership Thank You Letter sb4 Signatures: Dispatcher [employer] Jacky Good MD MD rn Lewis, Lynsay RN RN ll1 Tori Kim RN RN ld1 Radha Madrigal PA-C PA-C sb4
[2023-09-19 18:00] VITALS: BP 152/90; TEMP 97.6; O2SAT 100
== END 2023-09-19 16:42 | disposition home or self-care (01) ==
LOC: ER 15:02
DX: S00.83XA Contusion of other part of head, initial encounter (principal); W18.30XA Fall on same level, unspecified, initial encounter; G30.9 Alzheimer's disease, unspecified; F02.80 Dementia in other diseases classified elsewhere, unspecified severity, without behavioral disturbance, psychotic disturbance, mood disturbance, and anxiety; Z88.6 Allergy status to analgesic agent
CPT/HCPCS: 70450; 99284

== ENCOUNTER 2023-11-08 17:38 | Emergency (ER) | payer OTHER ==
[2023-11-08] MEDS ORDERED: DERMABOND SKIN ADHESIVE TOP ONE (18:17)
[2023-11-08] MEDS ORDERED: TDAP (DIPHTH,PERTUSS(ACELL),TET VAC) 0.5 ML VIAL IMVAC ONE (18:18)
--- NOTE | 2023-11-08 18:36 | RAD REPORT ---
EXAM DESCRIPTION: CT - Head Brain Wo Cont - 11/08/2023 6:20 pm CLINICAL HISTORY: Head injury status post fall COMPARISON: September 2023 TECHNIQUE: Computed axial tomography of the head was obtained. IV contrast was not requested. All CT scans are performed using dose optimization technique as appropriate and may include automated exposure control or mA/KV adjustment according to patient size. FINDINGS: An intracranial bleed is not seen The ventricles are normal in caliber No significant hypodense areas within the brain visualized. Prominent cerebral atrophy No extra-axial fluid collection is noted. Fluid within the sinuses/ mastoids is not seen IMPRESSION: No acute intracranial abnormality is seen If patient's symptoms persist MRI of the brain would be recommended
--- NOTE | 2023-11-08 19:14 | ER ---
Nurse's Notes [facility] Name: Jonathan Mark Age: 67 yrs Sex: Male : 1955 Arrival Date: 11/08/2023 Time: 17:38 Bed 5 Private MD: Diagnosis: Scalp Laceration/ Open wound of scalp;Unspecified injury of head, initial encounter Presentation: 11/07 17:48 Chief complaint: EMS states: they were called to [facility] for a patient who ap3 fell out of his wheelchair. patient presents to the ED with a laceration to his left eyebrow. Coronavirus screen: At this time, the client does not indicate any symptoms associated with coronavirus-19. Ebola Screen: No symptoms or risks identified at this time. Initial Sepsis Screen: Does the patient meet any 2 criteria? No. Patient's initial sepsis screen is negative. Does the patient have a suspected source of infection? No. Patient's initial sepsis screen is negative. Risk Assessment: Do you want to hurt yourself or someone else? Patient reports no desire to harm self or others. Onset of symptoms was November 08, 2023. 17:48 Method Of Arrival: EMS: [facility] ap3 17:48 Acuity: ROGELIO 3 ap3 Triage Assessment: 17:49 General: Appears in no apparent distress. Behavior is restless. Pain: Denies pain. ap3 Neuro: Level of Consciousness is awake, Oriented to person, patient is at reported baseline. Cardiovascular: Patient's skin is warm and dry. Respiratory: Airway is patent Respiratory effort is even, unlabored, Respiratory pattern is regular, symmetrical. Derm: Wound noted outer aspect of left eyebrow. Historical: - Allergies: 17:49 Aspirin; ap3 - PMHx: 17:49 Alzheimer's disease; Anemia; Anxiety; Dementia; depressive disorder; Diabetes - NIDDM; ap3 diabetes mellitus; Hyperlipidemia; Hypertension; insomnia; - Immunization history:: Client reports receiving the 2nd dose of the Covid vaccine. - Infectious Disease History:: Denies. - Social history:: Smoking status: Patient denies any tobacco usage or history of. Screenin:50 Abuse screen: Denies threats or abuse. Nutritional screening: No deficits noted. ap3 Tuberculosis screening: No symptoms or risk factors identified. 18:00 [facility] ED Fall Risk Assessment (Adult) History of falling in the last 3 months, ko1 including since admission Yes- single mechanical fall (1 pt) Confusion or Disorientation Yes (5 pts) Intoxicated or Sedated No (0 pts) Impaired Gait Yes (1 pt) Mobility Assist Device Used Yes (1 pt) Altered Elimination No (0 pt) Score/Fall Risk Level 3 or more points = High Risk Oriented to surroundings, Maintained a safe environment, Educated pt \T\ family on fall prevention, incl call for assistance when getting out of bed, Assessed \T\ reinforced patient's understanding of fall precautions, Provided non-skid footwear, Hourly rounding (assess needs \T\ fall precautionary measures) done, Used ambulatory aids as needed (educated on \T\ assisted with), Used gait belt as appropriate Implemented a Fall Risk Plan of Care, Apply high fall risk patient identification: yellow non skid footwear/ fall signage, Remained w/in arm's length of patient and in sight while toileting, Offered frequent toileting (1:1 observation), Remained with patient while ambulating, Utilized family, sitter, or virtual qa automation engineer as indicated. Assessment: 18:00 General: Appears in no apparent distress. slender, Behavior is cooperative, flat, ko1 quiet. Pain: Complains of pain in outer aspect of left eyebrow. Neuro: No deficits noted. Cardiovascular: No deficits noted. Respiratory: No deficits noted. GI: No deficits noted. : No deficits noted. EENT: No deficits noted. Derm: No deficits noted. Musculoskeletal: Swelling present in left eye. Injury Description: Laceration sustained to outer aspect of left eyebrow is clean, bleeding moderately, a small amount of bleeding noted at this time. 19:36 Reassessment: Disposition pending. Awaiting transportation. cp4 Vital Signs: 17:48 BP 146 / 107; Pulse 77; Resp 18; Pulse Ox 100% ; Weight 67.59 kg; ap3 18:00 BP 118 / 84; Pulse 71; Resp 16; Pulse Ox 100% ; ko1 19:58 BP 161 / 98; Pulse 70; Resp 18; Pulse Ox 100% ; cp4 ED Course: 17:47 Patient arrived in ED. ap3 17:48 Serg Ash MD is Attending Physician. ec2 17:49 Triage completed. ap3 17:50 Arm band placed on right wrist. ap3 17:50 Patient has correct armband on for positive identification. Bed in low position. Call ap3 light in reach. Side rails up X2. Client placed on continuous cardiac and pulse oximetry monitoring. NIBP monitoring applied. personnel monitor on. Pulse ox on. NIBP on. 18:00 Provided Education on: call light. Door closed. Noise minimized. Lights dimmed. Warm ko1 blanket given. Pillow given. 18:00 Wound care: to laceration located on outer aspect of left eyebrow was cleaned with ko1 Hibiclens, irrigated with normal saline, Patient tolerated well. 18:14 Yulia Lunsford, RN is Primary Nurse. ko1 18:21 CT Head Brain wo Cont In Process Unspecified. EDMS 19:55 Primary Nurse role handed off by Yulia Lunsford, ALEX as6 19:58 Anisa Dewitt is Primary Nurse. cp4 20:03 No provider procedures requiring assistance completed. Patient did not have IV access cp4 during this emergency room visit. Administered Medications: 18:22 Drug: Boostrix Tdap IM 0.5 ml IM once; as a single dose Route: IM; Site: left deltoid; ko1 20:00 Follow up: Response: No adverse reaction cp4 Medication: 18:00 Vaccine Information Statement (VIS) provided today. Questions and/or concerns ko1 addressed. VIS edition date: 2016. Outcome: 19:14 Discharge ordered by . ec2 20:03 Discharged to home ambulatory, cp4 20:03 Condition: stable 20:03 Discharge instructions given to EMS, Instructed on discharge instructions, follow up and referral plans. Demonstrated understanding of instructions, follow-up care, 20:04 Patient left the ED. cp4 Signatures: Dispatcher [employer] EDCO Hetal Garcia RN RN ap3 Brayan Soni RN RN as6 Yulia Lunsford, RN RN ko1 Serg Ash MD MD ec2 Potter, Christina cp4
--- NOTE | 2023-11-08 19:14 | EDPHYS ---
Physician Documentation [facility] Name: Jonathan Mark Age: 67 yrs Sex: Male : 1955 Arrival Date: 11/08/2023 Time: 17:38 Bed 5 Private MD: ED Physician Serg Ash HPI: 11/07 17:55 This 67 yrs old Black Male presents to ER via EMS with complaints of Fall Injury. ec2 17:55 Patient arrives today for evaluation of a head strike. Patient with had a witnessed ec2 fall, no LOC, not on blood thinners patient with history of dementia, minimally conversational. Denies any complaints however history is limited.. Historical: - Allergies: 17:49 Aspirin; ap3 - PMHx: 17:49 Alzheimer's disease; Anemia; Anxiety; Dementia; depressive disorder; Diabetes - NIDDM; ap3 diabetes mellitus; Hyperlipidemia; Hypertension; insomnia; - Immunization history:: Client reports receiving the 2nd dose of the Covid vaccine. - Infectious Disease History:: Denies. - Social history:: Smoking status: Patient denies any tobacco usage or history of. ROS: 17:55 Constitutional: as per hpi ec2 Exam: 17:55 Constitutional: GEN: NAD Head: atraumatic Eyes: EOMI Ears: External ears are ec2 normal. CV: regular rate LUNGS: no respiratory distress ABD: non-distended SKIN: 2 cm laceration to the left eyebrow. MSK: no evidence of trauma NEURO: moves all extremities equally Vital Signs: 17:48 BP 146 / 107; Pulse 77; Resp 18; Pulse Ox 100% ; Weight 67.59 kg; ap3 18:00 BP 118 / 84; Pulse 71; Resp 16; Pulse Ox 100% ; ko1 19:58 BP 161 / 98; Pulse 70; Resp 18; Pulse Ox 100% ; cp4 Laceration: 19:39 Wound Repair of 2cm ( 0.8in ) subcutaneous laceration to face. Distal ec2 neuro/vascular/tendon intact. Wound prep: Wound irrigation by nurse. Skin closed with 1-0 Adhesive skin closure using Dermabond. Patient tolerated well. MDM: 17:50 Patient medically screened. ec2 17:55 Data reviewed: vital signs. ED course: Patient arrives today for evaluation of head ec2 strike. Evaluation is remarkable for laceration as noted above. Will repair with Dermabond, obtain CT scan of the head given the patient's dementia and age. Differential diagnosis include laceration, intracranial brain bleed, doubt C-spine fracture.. 19:13 ED course: CT scan of the head shows no acute intracranial process. Will discharge ec2 home. Return precautions given. . 11/07 17:52 Order name: CT Head Brain wo Cont; Complete Time: 19:13 ec2 11/07 17:52 Order name: Wound Care; Complete Time: 18:31 ec2 11/07 17:55 Order name: Dermabond; Complete Time: 18:19 ec2 Administered Medications: 18:22 Drug: Boostrix Tdap IM 0.5 ml IM once; as a single dose Route: IM; Site: left deltoid; ko1 20:00 Follow up: Response: No adverse reaction cp4 Disposition Summary: 11/08/23 19:14 Discharge Ordered Notes: Location: Home ec2 Condition: Stable ec2 Diagnosis - Scalp Laceration/ Open wound of scalp ec2 - Unspecified injury of head, initial encounter ec2 Followup: ec2 - With: Private Physician - When: - Reason: Re-evaluation by your physician Discharge Instructions: - Discharge Summary Sheet ec2 - Tissue Adhesive Wound Care, [id number] ec2 Forms: - Medication Reconciliation Form ec2 - Antibiotic Education ec2 - Prescription Opioid Use ec2 - Patient Portal Instructions ec2 - Leadership Thank You Letter ec2 Signatures: Dispatcher [employer] Hetal Wilson RN RN ap3 Yulia Lunsford RN RN ko1 Serg Ash MD MD ec2 Anisa Dewitt cp4
[2023-11-08 20:45] VITALS: BP 161/98; O2SAT 100
== END 2023-11-08 20:04 | disposition home or self-care (01) ==
LOC: ER 17:38
PROC: 0HQ0XZZ Repair Scalp Skin, External Approach (ICD-10-PCS; principal; 2023-11-08)
DX: S01.01XA Laceration without foreign body of scalp, initial encounter (principal); Z23 Encounter for immunization
CPT/HCPCS: 70450; 96372; 99285

== ENCOUNTER 2023-11-17 17:53 | Emergency (ER) | payer OTHER ==
[2023-11-17] MEDS ORDERED: TDAP (DIPHTH,PERTUSS(ACELL),TET VAC) 0.5 ML VIAL IMVAC ONE (18:16)
--- NOTE | 2023-11-17 19:11 | ER ---
Nurse's Notes [facility] Name: Jonathan Mark Age: 67 yrs Sex: Male : 1955 Arrival Date: 11/17/2023 Time: 17:53 Bed 3 Private MD: Diagnosis: Fall (on) (from) other stairs and steps;Fall from bed, initial encounter;Laceration without foreign body of other part of head, initial encounter Presentation: 11/16 18:08 Chief complaint: EMS states: reportedly rolled out of bed and hit L side of head. No ss LOC reported. Approximately 1 in laceration noted to L side of head. No active bleeding noted at this time. Coronavirus screen: Client denies travel out of the [place] in the last 14 days. Ebola Screen: Patient denies exposure to infectious person. Patient denies travel to an Ebola-affected area in the 21 days before illness onset. Initial Sepsis Screen: Does the patient meet any 2 criteria? No. Patient's initial sepsis screen is negative. Does the patient have a suspected source of infection? No. Patient's initial sepsis screen is negative. Risk Assessment: Do you want to hurt yourself or someone else? Patient reports no desire to harm self or others. Onset of symptoms was November 17, 2023. 18:08 Method Of Arrival: EMS: [facility] 18:08 Acuity: ROGELIO 3 ss Triage Assessment: 18:08 General: Appears in no apparent distress. comfortable, Behavior is cooperative, ld1 anxious. Pain: Denies pain. EENT: No signs and/or symptoms were reported regarding the EENT system. Neuro: Level of Consciousness is awake, confused, Oriented to none. Cardiovascular: Capillary refill < 3 seconds Patient's skin is warm and dry. Respiratory: Airway is patent Respiratory effort is even, unlabored. GI: Abdomen is flat, non-distended. : No signs and/or symptoms were reported regarding the genitourinary system. Derm: No signs and/or symptoms reported regarding the dermatologic system. Musculoskeletal: No signs and/or symptoms reported regarding the musculoskeletal system. Injury Description: Laceration sustained to scalp. Historical: - Allergies: 18:08 No Known Allergies; ld1 - PMHx: 18:08 Alzheimer's disease; Anemia; Anxiety; Dementia; depressive disorder; Diabetes - NIDDM; ld1 diabetes mellitus; Hyperlipidemia; Hypertension; insomnia; Parkinson's disease; Historical Immunization: - Administered Vaccines 18:17 Tetanus Toxoid,Adsorbed IM 0.5 ml mb9 [employer]: [employer]; Exp: Sun Jan 12 2026; Lot #: [id number]; Series: 1 of 1; Patient Consent: Obtained; Date/Time: ; Source Name: Jonathan Mark; Source Relationship: Self; Address Information: [address] [place], [place] [id number]; ; Education: Provided; VIS Presented Date: ; VIS Publication: Tetanus/Diphtheria (Td) VIS 07/10/2013 (historic) - Immunization history:: Adult Immunizations up to date. - Infectious Disease History:: Denies. - Social history:: Smoking status: . - Family history:: not pertinent. Screenin:41 Abuse screen: Denies threats or abuse. Nutritional screening: No deficits noted. cp4 Tuberculosis screening: No symptoms or risk factors identified. 19:44 [facility] ED Fall Risk Assessment (Adult) History of falling in the last 3 months, cp4 including since admission Yes- fall prone (multiple falls) (3 pts) Confusion or Disorientation Yes (5 pts) Intoxicated or Sedated No (0 pts) Impaired Gait Yes (1 pt) Mobility Assist Device Used Yes (1 pt) Altered Elimination No (0 pt) Score/Fall Risk Level 3 or more points = High Risk Oriented to surroundings, Maintained a safe environment, Assessed \T\ reinforced patient's understanding of fall precautions, Hourly rounding (assess needs \T\ fall precautionary measures) done, Used ambulatory aids as needed (educated on \T\ assisted with), Implemented a Fall Risk Plan of Care, Remained with patient while ambulating. Assessment: 19:24 Reassessment: Awaiting transportation from family. cp4 Vital Signs: 18:08 BP 176 / 118; Pulse 84; Resp 18; Pulse Ox 100% on R/A; ld1 18:08 Temp 98.2; Weight 68.04 kg; Height 6 ft. 0 in. ; ld1 18:08 BP 174 / 118; Pulse 74; Resp 17; Pulse Ox 97% on R/A; ss 18:45 BP 175 / 99; Pulse 84; Resp 16; Pulse Ox 98% on R/A; mb9 18:08 Body Mass Index 20.34 (68.04 kg, 182.88 cm) ld1 [place] Coma Score: 18:08 Eye Response: spontaneous(4). Motor Response: obeys commands(6). Verbal Response: wendy oriented(5). Total: 15. 18:12 Eye Response: spontaneous(4). Motor Response: obeys commands(6). Verbal Response: wendy oriented(5). Total: 15. ED Course: 18:04 Patient arrived in ED. bc6 18:05 Jose Alfredo Lord MD is Attending Physician. wendy 18:08 Tori Kim RN is Primary Nurse. ld1 18:08 Arm band placed on right wrist. ss 18:11 Triage completed. ss 18:11 Wound care: to laceration located on L parietal area was cleaned with Hibiclens, ss Patient tolerated well. 18:34 CT Head C Spine In Process Unspecified. EDMS 19:07 Report given to ALEX Noonan. [facility] 19:40 No provider procedures requiring assistance completed. Patient did not have IV access cp4 during this emergency room visit. 19:41 Bed in low position. Call light in reach. Side rails up X2. Provided Education on: cp4 falls. Administered Medications: 18:17 Drug: Tetanus Toxoid,Adsorbed IM 0.5 ml IM once; Provide Vaccine Information Statement mb9 (VIS). 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 cp4 Outcome: 19:10 Discharge ordered by . [facility] 19:40 Discharged to detention. Report called to [place] cp4 19:40 Condition: stable 19:40 Discharge instructions given to family, detention, Instructed on discharge instructions, follow up and referral plans. Demonstrated understanding of instructions, follow-up care, 21:30 Patient left the ED. bm8 Signatures: Dispatcher [employer] Jose Alfredo Rutherford MD MD cha Blanchard, Shelby, RN RN ss Tori Kim RN RN ld1 Theresa Muñiz, RN RN mb9 Joya Frias Christina cp4 Saran Prakash RN RN bm8 Corrections: (The following items were deleted from the chart) 19:45 19:41 [facility] ED Fall Risk Assessment (Adult) History of falling in the last 3 months, cp4 including since admission No falls in past 3 months (0 pts) Confusion or Disorientation No (0 pts) Intoxicated or Sedated No (0 pts) Impaired Gait No (0 pts) Mobility Assist Device Used No (0 pt) Altered Elimination No (0 pt) Score/Fall Risk Level 0 - 2 = Low Risk Oriented to surroundings, Maintained a safe environment, Assessed \T\ reinforced patient's understanding of fall precautions, Hourly rounding (assess needs \T\ fall precautionary measures) done, cp4
--- NOTE | 2023-11-17 19:11 | EDPHYS ---
Physician Documentation [facility] Name: Jonathan aMrk Age: 67 yrs Sex: Male : 1955 Arrival Date: 11/17/2023 Time: 17:53 Bed 3 Private MD: ED Physician Jose Alfredo Lord HPI: 11/16 18:08 This 67 yrs old Black Male presents to ER via Unassigned with complaints of FALL OUT OF [facility] BED, LAC TO LEFT HEAD. 18:08 The patient or guardian reports injury, a laceration, pain, swelling, tenderness. The [facility] complaints affect the left frontal area. Context of injury: The problem was sustained at a correction or assisted living facility, resulted from a fall, BED. Onset: The symptoms/episode began/occurred just prior to arrival. Associated signs and symptoms: The patient has no apparent associated signs or symptoms, Loss of consciousness: This patient did not experience any loss of consciousness. Severity of symptoms: At their worst the symptoms were mild, in the emergency department the symptoms are unchanged. The patient has experienced similar episodes in the past, several times. Historical: - Allergies: 18:08 No Known Allergies; ld1 - PMHx: 18:08 Alzheimer's disease; Anemia; Anxiety; Dementia; depressive disorder; Diabetes - NIDDM; ld1 diabetes mellitus; Hyperlipidemia; Hypertension; insomnia; Parkinson's disease; - Immunization history:: Adult Immunizations up to date. - Infectious Disease History:: Denies. - Social history:: Smoking status: . - Family history:: not pertinent. ROS: 18:08 Constitutional: Negative for fever, chills, and weight loss, Eyes: Negative for injury, wendy pain, redness, and discharge, ENT: Negative for injury, pain, and discharge, Neck: Negative for injury, pain, and swelling, Cardiovascular: Negative for chest pain, palpitations, and edema, Respiratory: Negative for shortness of breath, cough, wheezing, and pleuritic chest pain, Abdomen/GI: Negative for abdominal pain, nausea, vomiting, diarrhea, and constipation, Back: Negative for injury and pain, : Negative for injury, bleeding, discharge, and swelling, MS/Extremity: Negative for injury and deformity, Skin: Negative for injury, rash, and discoloration, Psych: Negative for depression, anxiety, suicide ideation, homicidal ideation, and hallucinations, Allergy/Immunology: Negative for hives, rash, and allergies, Endocrine: Negative for neck swelling, polydipsia, polyuria, polyphagia, and marked weight changes, Hematologic/Lymphatic: Negative for swollen nodes, abnormal bleeding, and unusual bruising, 18:08 Neuro: Positive for NONE , BASELINE, Exam: 18:08 Constitutional: This is a well developed, well nourished patient who is awake, alert, wendy and in no acute distress. Eyes: Pupils equal round and reactive to light, extra-ocular motions intact. Lids and lashes normal. Conjunctiva and sclera are non-icteric and not injected. Cornea within normal limits. Periorbital areas with no swelling, redness, or edema. ENT: Nares patent. No nasal discharge, no septal abnormalities noted. Tympanic membranes are normal and external auditory canals are clear. Oropharynx with no redness, swelling, or masses, exudates, or evidence of obstruction, uvula midline. Mucous membranes moist. Neck: Trachea midline, no thyromegaly or masses palpated, and no cervical lymphadenopathy. Supple, full range of motion without nuchal rigidity, or vertebral point tenderness. No Meningismus. Chest/axilla: Normal chest wall appearance and motion. Nontender with no deformity. No lesions are appreciated. Cardiovascular: Regular rate and rhythm with a normal S1 and S2. No gallops, murmurs, or rubs. Normal PMI, no JVD. No pulse deficits. Respiratory: Lungs have equal breath sounds bilaterally, clear to auscultation and percussion. No rales, rhonchi or wheezes noted. No increased work of breathing, no retractions or nasal flaring. Abdomen/GI: Soft, non-tender, with normal bowel sounds. No distension or tympany. No guarding or rebound. No evidence of tenderness throughout. Back: No spinal tenderness. No costovertebral tenderness. Full range of motion. Male : Normal genitalia with no discharge or lesions. Skin: Warm, dry with normal turgor. Normal color with no rashes, no lesions, and no evidence of cellulitis. MS/ Extremity: Pulses equal, no cyanosis. Neurovascular intact. Full, normal range of motion. Neuro: Awake and alert, GCS 15, oriented to person, place, time, and situation. Cranial nerves II-XII grossly intact. Motor strength 5/5 in all extremities. Sensory grossly intact. Cerebellar exam normal. Normal gait. Psych: Awake, alert, with orientation to person, place and time. Behavior, mood, and affect are within normal limits. 18:08 Head/face: Noted is a laceration(s), that is superficial, 2.54 cm(s), of the left frontal area, swelling, Vital Signs: 18:08 BP 176 / 118; Pulse 84; Resp 18; Pulse Ox 100% on R/A; ld1 18:08 Temp 98.2; Weight 68.04 kg; Height 6 ft. 0 in. ; ld1 18:08 BP 174 / 118; Pulse 74; Resp 17; Pulse Ox 97% on R/A; ss 18:45 BP 175 / 99; Pulse 84; Resp 16; Pulse Ox 98% on R/A; mb9 18:08 Body Mass Index 20.34 (68.04 kg, 182.88 cm) ld1 [place] Coma Score: 18:08 Eye Response: spontaneous(4). Motor Response: obeys commands(6). Verbal Response: wendy oriented(5). Total: 15. 18:12 Eye Response: spontaneous(4). Motor Response: obeys commands(6). Verbal Response: wendy oriented(5). Total: 15. MDM: 18:05 Patient medically screened. wendy 18:12 Differential diagnosis: Contusion of Hematoma on Laceration of Intracranial bleed- wendy Concussion without LOC. cerebral contusion. Data reviewed: vital signs, nurses notes, radiologic studies, CT scan. Consideration of Admission/Observation Escalation of care including admission/observation considered. Independent interpretation of the following test(s) in the Emergency Department CT Scan: My interpretation is CT HEAD , C SPINE. Care significantly affected by the following chronic conditions: Diabetes, ALHHIEMERS, DEMENTIA, DEPRESSION, ANXIETY. 11/16 18:06 Order name: CT Head C Spine; Complete Time: 20:28 wendy 11/16 18:06 Order name: Misc. Order: BETADINE AND STAPLER; Complete Time: 18:11 wendy 11/16 18:29 Order name: Blood Pressure Recheck; Complete Time: 18:45 wendy Administered Medications: 18:17 Drug: Tetanus Toxoid,Adsorbed IM 0.5 ml IM once; Provide Vaccine Information Statement mb9 (VIS). 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: [employer]; Exp: Sun Jan 12 2026; Lot #: [id number]; Series: 1 of 1; Patient Consent: Obtained; Date/Time: ; Source Name: Jonathan Mark; Source Relationship: Self; Address Information: [address] [place] [address]; ; Education: Provided; VIS Presented Date: ; VIS Publication: Tetanus/Diphtheria (Td) VIS 07/10/2013 (historic)} Route: IM; Site: left deltoid; 19:31 Follow up: Response: No adverse reaction cp4 Disposition Summary: 11/17/23 19:10 Discharge Ordered Notes: Location: Home wendy Problem: new wendy Symptoms: have improved wendy Condition: Stable wendy Diagnosis - Fall (on) (from) other stairs and steps wendy - Fall from bed, initial encounter wendy - Laceration without foreign body of other part of head, initial encounter wendy Followup: wendy - With: Private Physician - When: 2 - 3 days - Reason: Recheck today's complaints, Continuance of care, Re-evaluation by your physician Discharge Instructions: - Discharge Summary Sheet wendy - Dementia wendy - Head Injury, Adult wendy - Fall Prevention in the Home, Adult wendy - Laceration Care, Adult wendy - Sutures, [place], or Adhesive Wound Closure wendy - Laceration Care, Adult, [id number] wendy - Fall Prevention in the Home, Adult, [id number] wendy - Head Injury, Adult, [id number] wendy - Sutures, Kely, or Adhesive Wound Closure, [id number] wendy Forms: - Medication Reconciliation Form wendy - Antibiotic Education wendy - Prescription Opioid Use wendy - Patient Portal Instructions wendy - Leadership Thank You Letter wendy Signatures: Dispatcher [employer] Jose Alfredo Rutherford MD MD cha Sims, Lauren RN RN ld1 Theresa Muñiz RN RN mb9 Anisa Dewitt cp4
--- NOTE | 2023-11-17 19:34 | RAD REPORT ---
EXAM DESCRIPTION: CT - [id number] - 11/17/2023 6:37 pm CLINICAL HISTORY: TRAUMA COMPARISON: Head C Spine Mpr Wo Con dated 12/14/2021 TECHNIQUE: Axial thin cut noncontrast CT images of the head were obtained. Axial thin cut noncontrast CT images of the cervical spine were obtained. Multiplanar reformatted images were generated and reviewed. All CT scans are performed using dose optimization technique as appropriate and may include automated exposure control or mA/KV adjustment according to patient size. FINDINGS: CT HEAD WITHOUT CONTRAST: No acute hemorrhage, hydrocephalus or extra-axial collection is identified.No areas of brain edema or midline shift. The paranasal sinuses and mastoids are clear.The calvarium is intact. Left parietal scalp edmundo an d swelling. CT CERVICAL SPINE WITHOUT CONTRAST: No fracture or subluxation.No prevertebral soft tissues swelling is identified. IMPRESSION: No acute traumatic intracranial or cervical spine findings. Left parietal scalp edmundo and swelling.
[2023-11-17 21:47] VITALS: BP 175/99; TEMP 98.2; O2SAT 98
== END 2023-11-17 21:30 | disposition home or self-care (01) ==
LOC: ER 17:53
DX: S01.81XA Laceration without foreign body of other part of head, initial encounter (principal); W06.XXXA Fall from bed, initial encounter; Z23 Encounter for immunization
CPT/HCPCS: 70450; 72125; 90471; 99284